=== PATIENT | female | born 1960 | race Caucasian/White ===

== ENCOUNTER 2021-03-04 06:16 | Inpatient (IN) ==
[2021-03-04 07:08] LABS: Basophils % 0.2 % (0.0-0.8); Eosinophils # 0.1 10*3/uL (0.0-0.87); Eosinophils % 0.6 % (0.00-10.9); Hematocrit 35.1 VOL% (35.7-47.0); Hemoglobin 11.9 GM/DL (12.0-16.0); Immature Granulocytes % 0.9 %; Immature Granulocytes Absolute 0.17 #; Lymphocytes # 1.3 10*3/uL (1.4-4.0); Lymphocytes % 6.8 % (21.3-54.2); Mean Corpuscular HGB Conc 33.9 GM/DL (32-36); Mean Corpuscular Volume 88.4 FL (87-102); Mean Platelet Volume 10.7 FL (9.6-12.0); Monocytes % 7.5 % (1.7-12.7); Platelet Count 449 T/CUMM (130-400); Red Blood Count 3.97 MC/CUMM (3.8-5.5); Red Cell Distribution Width 14.6 % (9.3-17.3); White Blood Count 18.7 T/CUMM (4-12)
[2021-03-04 07:27] LABS: Albumin 3.2 G/DL (3.4-5.0); Bilirubin,Total 0.6 MG/DL (0.20-1.00); Calcium 9.2 MG/DL (8.5-10.1); Potassium 3.1 MMOL/L (3.5-5.1); Total Protein 7.7 G/DL (6.4-8.2)
[2021-03-04] MEDS ORDERED: FUROSEMIDE 40 MG/4 ML VIAL IV STA (07:52)
[2021-03-04] MEDS ORDERED: cefTRIAXone 1,000 MG in SODIUM CHLORIDE 0.9% 100 ML IV STA (08:26)
[2021-03-04 09:45] LABS: Ferritin 270.6 ng/mL (8-252)
[2021-03-04] MEDS ORDERED: GLUCAGON 1 MG VIAL IM PRN (12:46)
[2021-03-04] MEDS ORDERED: guaiFENesin/DM ER 600-30 MG TABLET PO PRN (12:46)
[2021-03-04] MEDS ORDERED: POTASSIUM CHLORIDE 20 MEQ TABLET PO STA (12:46)
[2021-03-04] MEDS ORDERED: LACTATED RINGERS 1,000 ML IV SCH (13:00)
[2021-03-04] MEDS ORDERED: DEXTROSE 50% 25 GM/50 ML SYRINGE IV PRN (13:04)
[2021-03-04] MEDS: ALBUTEROL/IPRATROPIUM 3 ML NEB RESP TX SCH ×2 (14:47→20:49)
[2021-03-04 15:14] LABS: Thyroid Stimulating Hormone 8.29 uIU/ml (0.358-3.74)
[2021-03-04] MEDS: MEROPENEM 500 MG in SODIUM CHLORIDE 0.9% 100 ML IV SCH ×2 (15:35→22:37)
[2021-03-04] MEDS ORDERED: POTASSIUM CHLORIDE RIDER 10 MEQ/100 ML PREMIX IV PRN (17:07)
[2021-03-04] MEDS: VANCOMYCIN INJ 750 MG in SODIUM CHLORIDE 0.9% 250 ML IV SCH (17:40)
[2021-03-04] MEDS: ONDANSETRON 4 MG/2 ML VIAL IV PRN ×2 (18:13→23:49)
[2021-03-04] MEDS: METOPROLOL TARTRATE 25 MG TABLET PO SCH (20:37)
[2021-03-04] MEDS: ATORVASTATIN 10 MG TABLET PO SCH (20:37)
[2021-03-05] MEDS: ALBUTEROL/IPRATROPIUM 3 ML NEB RESP TX SCH (00:10)
[2021-03-05] MEDS: IPRATROPIUM 500 MCG/2.5 ML NEB RESP TX SCH ×4 (01:07→19:56)
[2021-03-05] MEDS: LEVALBUTEROL 1.25 MG/3 ML NEB RESP TX SCH ×4 (01:09→19:56)
[2021-03-05] MEDS ORDERED: FUROSEMIDE 40 MG/4 ML VIAL IV ONE (04:43)
[2021-03-05] MEDS: MEROPENEM 500 MG in SODIUM CHLORIDE 0.9% 100 ML IV SCH ×3 (05:21→21:12)
[2021-03-05 06:16] LABS: Basophils % 0.2 % (0.0-0.8); Eosinophils # 0.2 10*3/uL (0.0-0.87); Hematocrit 38.4 VOL% (35.7-47.0); Hemoglobin 12.6 GM/DL (12.0-16.0); Immature Granulocytes % 0.8 %; Immature Granulocytes Absolute 0.14 #; Lymphocytes # 1.3 10*3/uL (1.4-4.0); Lymphocytes % 7.9 % (21.3-54.2); Mean Corpuscular HGB Conc 32.8 GM/DL (32-36); Mean Corpuscular Volume 90.1 FL (87-102); Mean Platelet Volume 10.8 FL (9.6-12.0); Monocytes % 7.3 % (1.7-12.7); Neutrophils % 82.8 % (38.7-73.9); Platelet Count 356 T/CUMM (130-400); Red Blood Count 4.26 MC/CUMM (3.8-5.5); White Blood Count 16.7 T/CUMM (4-12)
[2021-03-05 06:41] LABS: Eosinophils 1 % (0-10); Lymphocytes 6 % (20-55); Platelet Estimate Adequate; Segmented Neutrophils 85 % (50-85); Total Cells Counted 100
[2021-03-05 06:42] LABS: Ovalocytes Slight
[2021-03-05 06:51] LABS: Albumin 3.1 G/DL (3.4-5.0); Bilirubin,Total 0.4 MG/DL (0.20-1.00); Calcium 8.6 MG/DL (8.5-10.1); Osmolality,Calculated 276.1 MOS/KG (273-304); Potassium 3.5 MMOL/L (3.5-5.1); Total Protein 7.6 G/DL (6.4-8.2)
[2021-03-05] MEDS: PANTOPRAZOLE 40 MG TABLET PO SCH (08:04)
[2021-03-05] MEDS: METOPROLOL TARTRATE 25 MG TABLET PO SCH ×2 (08:04→21:12)
[2021-03-05] MEDS ORDERED: IBUPROFEN 600 MG TABLET PO PRN (08:09)
[2021-03-05] MEDS ORDERED: FUROSEMIDE 20 MG TABLET PO PRN (08:09)
[2021-03-05] MEDS ORDERED: TEMAZEPAM 15 MG CAPSULE PO PRN (08:09)
[2021-03-05] MEDS ORDERED: traMADol 50 MG TABLET PO PRN (08:09)
[2021-03-05 08:26] LABS: Free T4 (Free Thyroxine) 1.17 NG/DL (0.76-1.46)
[2021-03-05 08:46] LABS: INR 1.1; PT Patient Result 12.5 SECS (10.5-12.0)
[2021-03-05] MEDS: DEXAMETHASONE 4 MG TABLET PO SCH (11:11)
[2021-03-05] MEDS: ESTRADIOL 1 MG TABLET PO SCH (11:11)
[2021-03-05 13:26] LABS: Immunoglobulin A < 31 MG/DL (70-400); Immunoglobulin G 196 MG/DL (700-1600); Immunoglobulin M < 21 MG/DL (40-230); Total Protein 7.2 G/DL (6.4-8.2)
[2021-03-05] MEDS: ENOXAPARIN 40 MG/0.4 ML SYRINGE SUBCUT SCH (14:06)
[2021-03-05] MEDS: VANCOMYCIN INJ 750 MG in SODIUM CHLORIDE 0.9% 250 ML IV SCH (16:35)
[2021-03-05] MEDS: ATORVASTATIN 10 MG TABLET PO SCH (21:12)
[2021-03-05] MEDS: TEMAZEPAM 15 MG CAPSULE PO PRN (21:51)
[2021-03-06] MEDS: MEROPENEM 500 MG in SODIUM CHLORIDE 0.9% 100 ML IV SCH ×3 (05:14→21:04)
[2021-03-06 05:25] LABS: Basophils % 0.2 % (0.0-0.8); Eosinophils # 0.1 10*3/uL (0.0-0.87); Eosinophils % 0.5 % (0.00-10.9); Hematocrit 34.7 VOL% (35.7-47.0); Hemoglobin 11.2 GM/DL (12.0-16.0); Immature Granulocytes % 0.8 %; Immature Granulocytes Absolute 0.13 #; Lymphocytes # 1.6 10*3/uL (1.4-4.0); Lymphocytes % 9.5 % (21.3-54.2); Mean Corpuscular HGB Conc 32.3 GM/DL (32-36); Mean Corpuscular Volume 91.3 FL (87-102); Mean Platelet Volume 10.8 FL (9.6-12.0); Monocytes % 6.3 % (1.7-12.7); Neutrophils % 82.7 % (38.7-73.9); Platelet Count 412 T/CUMM (130-400); Red Cell Distribution Width 14.8 % (9.3-17.3); White Blood Count 16.9 T/CUMM (4-12)
[2021-03-06 05:46] LABS: Platelet Estimate Normal
[2021-03-06 05:47] LABS: Anisocytosis 1+; Burr Cells Few; Ovalocytes Few
[2021-03-06 05:53] LABS: Albumin 2.9 G/DL (3.4-5.0); Bilirubin,Total 0.4 MG/DL (0.20-1.00); Osmolality,Calculated 274.1 MOS/KG (273-304); Potassium 3.8 MMOL/L (3.5-5.1); Total Protein 7.1 G/DL (6.4-8.2)
[2021-03-06] MEDS: CLORAZEPATE 3.75 MG TABLET PO PRN ×2 (06:01→15:29)
[2021-03-06 06:44] LABS: Total Protein (Chem) 7.2 G/DL (6.4-8.3)
[2021-03-06 07:52] LABS: Albumin (SPE) 4.2 G/DL (3.2-5.3); Albumin (SPE) Rel % 58.9 %; Alpha 1 (SPE) 0.2 G/DL (0.1-0.4); Alpha 1 (SPE) Rel % 3.4 %; Alpha 2 (SPE) 1.3 G/DL (0.4-1.0); Alpha 2 (SPE) Rel % 18.6 %; Beta (SPE) 1.1 G/DL (0.5-1.1); Gamma (SPE) 0.3 G/DL (0.7-1.7); Gamma (SPE) Rel % 4.1 %
[2021-03-06] MEDS: PANTOPRAZOLE 40 MG TABLET PO SCH (08:40)
[2021-03-06] MEDS ORDERED: LEVALBUTEROL 1.25 MG/3 ML NEB RESP TX PRN (08:41)
[2021-03-06] MEDS: METOPROLOL TARTRATE 25 MG TABLET PO SCH ×2 (08:41→21:04)
[2021-03-06] MEDS: ESTRADIOL 1 MG TABLET PO SCH (08:41)
[2021-03-06] MEDS: DEXAMETHASONE 4 MG TABLET PO SCH (08:41)
[2021-03-06] MEDS: IPRATROPIUM 500 MCG/2.5 ML NEB RESP TX SCH (09:21)
[2021-03-06] MEDS: ENOXAPARIN 40 MG/0.4 ML SYRINGE SUBCUT SCH (11:08)
[2021-03-06] MEDS ORDERED: POTASSIUM CHLORIDE 20 MEQ TABLET PO SCH (11:30)
[2021-03-06] MEDS ORDERED: FUROSEMIDE 20 MG/2 ML VIAL IV ONE (12:00)
[2021-03-06] MEDS: MONTELUKAST 10 MG TABLET PO SCH (13:04)
[2021-03-06] MEDS: LEVALBUTEROL 1.25 MG/3 ML NEB RESP TX SCH (13:14)
[2021-03-06] MEDS: POTASSIUM BICARB EFFERVESCENT 20 MEQ TAB.EFF PO SCH (13:28)
[2021-03-06 14:21] LABS: Lambda Free Light Chain 0.84 mg/dL
[2021-03-06] MEDS: FUROSEMIDE 20 MG/2 ML VIAL IV SCH (16:22)
[2021-03-06] MEDS: VANCOMYCIN INJ 750 MG in SODIUM CHLORIDE 0.9% 250 ML IV SCH (16:22)
[2021-03-06] MEDS ORDERED: AZITHROMYCIN INJ 500 MG in SODIUM CHLORIDE 0.9% 250 ML IV SCH (18:00)
[2021-03-06] MEDS ORDERED: ALUMINUM/MAGNES/SIMETH MAX STR 30 ML UDCUP PO PRN (18:42)
[2021-03-06] MEDS: ONDANSETRON 4 MG/2 ML VIAL IV PRN (19:17)
[2021-03-06] MEDS: ATORVASTATIN 10 MG TABLET PO SCH (21:04)
[2021-03-06] MEDS: TEMAZEPAM 15 MG CAPSULE PO PRN (21:04)
[2021-03-06] MEDS: BENZONATATE 100 MG CAPSULE PO PRN (22:45)
[2021-03-07 05:50] LABS: Basophils % 0.2 % (0.0-0.8); Eosinophils # 0.2 10*3/uL (0.0-0.87); Eosinophils % 1.3 % (0.00-10.9); Hematocrit 28.2 VOL% (35.7-47.0); Hemoglobin 9.5 GM/DL (12.0-16.0); Immature Granulocytes % 0.8 %; Lymphocytes # 1.5 10*3/uL (1.4-4.0); Lymphocytes % 11.6 % (21.3-54.2); Mean Corpuscular HGB Conc 33.7 GM/DL (32-36); Mean Platelet Volume 10.4 FL (9.6-12.0); Monocytes % 8.6 % (1.7-12.7); Neutrophils % 77.5 % (38.7-73.9); Platelet Count 363 T/CUMM (130-400); Red Blood Count 3.17 MC/CUMM (3.8-5.5); Red Cell Distribution Width 14.7 % (9.3-17.3); White Blood Count 13.1 T/CUMM (4-12)
[2021-03-07] MEDS: MEROPENEM 500 MG in SODIUM CHLORIDE 0.9% 100 ML IV SCH ×3 (06:07→21:39)
[2021-03-07] MEDS: FUROSEMIDE 20 MG/2 ML VIAL IV SCH (06:07)
[2021-03-07] MEDS: CLORAZEPATE 3.75 MG TABLET PO PRN ×3 (07:16→21:37)
[2021-03-07] MEDS: BENZONATATE 100 MG CAPSULE PO PRN ×2 (07:17→21:37)
[2021-03-07] MEDS ORDERED: AZITHROMYCIN 250 MG TABLET PO SCH (09:00)
[2021-03-07] MEDS: POTASSIUM BICARB EFFERVESCENT 20 MEQ TAB.EFF PO SCH (10:09)
[2021-03-07] MEDS: MONTELUKAST 10 MG TABLET PO SCH (10:09)
[2021-03-07] MEDS: ESTRADIOL 1 MG TABLET PO SCH (10:10)
[2021-03-07] MEDS: PANTOPRAZOLE 40 MG TABLET PO SCH ×2 (10:10→21:38)
[2021-03-07] MEDS: DEXAMETHASONE 4 MG TABLET PO SCH (10:10)
[2021-03-07] MEDS: METOPROLOL TARTRATE 25 MG TABLET PO SCH ×2 (10:10→21:38)
[2021-03-07] MEDS ORDERED: metOLazone 5 MG TABLET PO SCH (11:00)
[2021-03-07] MEDS: POTASSIUM CHLORIDE 20 MEQ TABLET PO SCH ×2 (11:07→21:38)
[2021-03-07] MEDS: DORNASE ALFA 2.5 MG/2.5 ML VIAL RESP TX SCH ×2 (11:20→20:23)
[2021-03-07 12:10] LABS: Calcium 7.1 MG/DL (8.5-10.1); Osmolality,Calculated 277.1 MOS/KG (273-304); Potassium 3.9 MMOL/L (3.5-5.1)
[2021-03-07] MEDS ORDERED: FUROSEMIDE 40 MG/4 ML VIAL IV ONE ×2 (12:30→20:30)
[2021-03-07] MEDS: VANCOMYCIN INJ 750 MG in SODIUM CHLORIDE 0.9% 250 ML IV SCH (19:28)
[2021-03-07] MEDS: ATORVASTATIN 10 MG TABLET PO SCH (21:37)
[2021-03-07] MEDS: TEMAZEPAM 15 MG CAPSULE PO PRN (21:38)
[2021-03-07] MEDS: ENOXAPARIN 40 MG/0.4 ML SYRINGE SUBCUT SCH (21:39)
[2021-03-08] MEDS ORDERED: VANCOMYCIN INJ 750 MG in SODIUM CHLORIDE 0.9% 250 ML IV SCH (05:00)
[2021-03-08] MEDS: MEROPENEM 500 MG in SODIUM CHLORIDE 0.9% 100 ML IV SCH ×3 (05:37→20:09)
[2021-03-08 06:05] LABS: Basophils % 0.1 % (0.0-0.8); Eosinophils # 0.1 10*3/uL (0.0-0.87); Eosinophils % 0.7 % (0.00-10.9); Hematocrit 27.7 VOL% (35.7-47.0); Hemoglobin 9.4 GM/DL (12.0-16.0); Immature Granulocytes % 0.6 %; Immature Granulocytes Absolute 0.06 #; Lymphocytes # 1.2 10*3/uL (1.4-4.0); Mean Corpuscular HGB Conc 33.9 GM/DL (32-36); Mean Corpuscular Volume 87.9 FL (87-102); Mean Platelet Volume 10.7 FL (9.6-12.0); Monocytes % 9.1 % (1.7-12.7); Neutrophils % 77.5 % (38.7-73.9); Platelet Count 323 T/CUMM (130-400); Red Blood Count 3.15 MC/CUMM (3.8-5.5); Red Cell Distribution Width 14.8 % (9.3-17.3); White Blood Count 9.9 T/CUMM (4-12)
[2021-03-08] MEDS ORDERED: HEPARIN/NACL 0.9% 2 UNITS/ML 2,000 UNIT/1,000 ML BAG IV ONE (07:17)
[2021-03-08] MEDS ORDERED: LIDOCAINE 1% 20 ML VIAL ONE (07:17)
[2021-03-08] MEDS ORDERED: FUROSEMIDE 40 MG/4 ML VIAL IV SCH (08:00)
[2021-03-08 08:24] LABS: Calcium 7.1 MG/DL (8.5-10.1); Osmolality,Calculated 275.1 MOS/KG (273-304); Potassium 3.6 MMOL/L (3.5-5.1)
[2021-03-08] MEDS ORDERED: diphenhydrAMINE CAP 50 MG CAPSULE PO ONE (08:59)
[2021-03-08] MEDS ORDERED: DIAZEPAM 5 MG TABLET PO ONE (08:59)
[2021-03-08] MEDS ORDERED: POTASSIUM BICARB EFFERVESCENT 20 MEQ TAB.EFF PO SCH (09:00)
[2021-03-08] MEDS: DORNASE ALFA 2.5 MG/2.5 ML VIAL RESP TX SCH ×2 (10:11→21:27)
[2021-03-08] MEDS: DEXAMETHASONE 4 MG TABLET PO SCH (11:10)
[2021-03-08] MEDS: POTASSIUM CHLORIDE 20 MEQ TABLET PO SCH ×2 (11:10→20:09)
[2021-03-08] MEDS: PANTOPRAZOLE 40 MG TABLET PO SCH ×2 (11:11→20:09)
[2021-03-08] MEDS: METOPROLOL TARTRATE 25 MG TABLET PO SCH ×2 (11:11→20:09)
[2021-03-08] MEDS: MONTELUKAST 10 MG TABLET PO SCH (11:11)
[2021-03-08] MEDS: ESTRADIOL 1 MG TABLET PO SCH (11:11)
[2021-03-08 11:12] LABS: Bilirubin,Urine Negative (Negative); Blood, Urine Small mg/dL (Negative); Glucose,Urine (UA) Negative (Negative); Ketones,Urine Negative (Negative); Mucus,Urine Occasional /LPF (Occasional); Nitrite,Urine Negative (Negative); Protein,Urine Negative; RBC,Urine 2 /HPF (0-4); Squamous Epithelial Cell,Urine Few /HPF (0-10); Urine Appearance CLEAR (Clear); Urine Color Straw (Yellow); Urine Specific Gravity 1.017 (1.001-1.035); Urine Urobilinogen < 2.0 EU/DL (<2.0)
[2021-03-08] MEDS: CLORAZEPATE 3.75 MG TABLET PO PRN ×2 (11:17→20:09)
[2021-03-08] MEDS: FUROSEMIDE INJ 100 MG in SODIUM CHLORIDE 0.9% 90 ML IV SCH ×2 (11:20→20:30)
[2021-03-08] MEDS: BENZONATATE 100 MG CAPSULE PO PRN (14:26)
[2021-03-08] MEDS ORDERED: ALPRAZolam 0.5 MG TABLET PO ONE (16:07)
[2021-03-08] MEDS: ATORVASTATIN 10 MG TABLET PO SCH (20:09)
[2021-03-08] MEDS: TEMAZEPAM 15 MG CAPSULE PO PRN (20:09)
[2021-03-08] MEDS: MAGNESIUM OXIDE 400 MG TABLET PO SCH (20:09)
[2021-03-08] MEDS: ENOXAPARIN 40 MG/0.4 ML SYRINGE SUBCUT SCH (20:22)
[2021-03-09 03:49] LABS: Basophils % 0.1 % (0.0-0.8); Eosinophils % 0.3 % (0.00-10.9); Hematocrit 29.5 VOL% (35.7-47.0); Hemoglobin 9.8 GM/DL (12.0-16.0); Immature Granulocytes % 0.5 %; Immature Granulocytes Absolute 0.05 #; Lymphocytes % 10.4 % (21.3-54.2); Mean Corpuscular HGB Conc 33.2 GM/DL (32-36); Mean Corpuscular Volume 88.6 FL (87-102); Mean Platelet Volume 9.9 FL (9.6-12.0); Monocytes % 7.5 % (1.7-12.7); Neutrophils % 81.2 % (38.7-73.9); Platelet Count 331 T/CUMM (130-400); Red Blood Count 3.33 MC/CUMM (3.8-5.5); Red Cell Distribution Width 14.6 % (9.3-17.3); White Blood Count 9.3 T/CUMM (4-12)
[2021-03-09 04:03] LABS: Calcium 7.7 MG/DL (8.5-10.1); Osmolality,Calculated 281.7 MOS/KG (273-304); Potassium 4.4 MMOL/L (3.5-5.1)
[2021-03-09] MEDS: MEROPENEM 500 MG in SODIUM CHLORIDE 0.9% 100 ML IV SCH ×3 (06:00→20:51)
[2021-03-09] MEDS: FUROSEMIDE INJ 100 MG in SODIUM CHLORIDE 0.9% 90 ML IV SCH (06:29)
[2021-03-09] MEDS: DORNASE ALFA 2.5 MG/2.5 ML VIAL RESP TX SCH ×2 (07:20→21:09)
[2021-03-09] MEDS: ESTRADIOL 1 MG TABLET PO SCH (08:01)
[2021-03-09] MEDS: MAGNESIUM OXIDE 400 MG TABLET PO SCH ×2 (08:01→20:51)
[2021-03-09] MEDS: DEXAMETHASONE 4 MG TABLET PO SCH (08:02)
[2021-03-09] MEDS: MONTELUKAST 10 MG TABLET PO SCH (08:02)
[2021-03-09] MEDS: PANTOPRAZOLE 40 MG TABLET PO SCH ×2 (08:02→20:51)
[2021-03-09] MEDS: POTASSIUM CHLORIDE 20 MEQ TABLET PO SCH ×2 (08:02→20:51)
[2021-03-09] MEDS: CLORAZEPATE 3.75 MG TABLET PO PRN ×2 (08:02→20:51)
[2021-03-09] MEDS: METOPROLOL TARTRATE 25 MG TABLET PO SCH ×2 (08:02→20:51)
[2021-03-09] MEDS ORDERED: GRANISETRON 1 MG/1 ML VIAL IV ONE (11:00)
[2021-03-09] MEDS ORDERED: DEXAMETHASONE INJ 10 MG in SODIUM CHLORIDE 0.9% 50 ML IV ONE (11:00)
[2021-03-09] MEDS ORDERED: CYCLOPHOSPHAMIDE INJ 500 MG in SODIUM CHLORIDE 0.9% 250 ML IV ONE (12:00)
[2021-03-09] MEDS ORDERED: FUROSEMIDE INJ 100 MG in SODIUM CHLORIDE 0.9% 90 ML IV SCH ×2 (17:18→18:00)
[2021-03-09] MEDS: TEMAZEPAM 15 MG CAPSULE PO PRN (20:50)
[2021-03-09] MEDS: ATORVASTATIN 10 MG TABLET PO SCH (20:51)
[2021-03-09] MEDS: ENOXAPARIN 40 MG/0.4 ML SYRINGE SUBCUT SCH (20:51)
[2021-03-10] MEDS: FUROSEMIDE INJ 100 MG in SODIUM CHLORIDE 0.9% 90 ML IV SCH ×2 (02:01→06:15)
[2021-03-10 04:11] LABS: Basophils % 0.1 % (0.0-0.8); Hematocrit 29.2 VOL% (35.7-47.0); Hemoglobin 9.9 GM/DL (12.0-16.0); Immature Granulocytes % 0.5 %; Immature Granulocytes Absolute 0.05 #; Lymphocytes # 0.6 10*3/uL (1.4-4.0); Lymphocytes % 6.4 % (21.3-54.2); Mean Corpuscular HGB Conc 33.9 GM/DL (32-36); Mean Corpuscular Volume 87.2 FL (87-102); Mean Platelet Volume 10.3 FL (9.6-12.0); Monocytes % 8.6 % (1.7-12.7); Neutrophils % 84.4 % (38.7-73.9); Platelet Count 327 T/CUMM (130-400); Red Blood Count 3.35 MC/CUMM (3.8-5.5); Red Cell Distribution Width 14.4 % (9.3-17.3); White Blood Count 9.1 T/CUMM (4-12)
[2021-03-10] MEDS: MEROPENEM 500 MG in SODIUM CHLORIDE 0.9% 100 ML IV SCH ×3 (05:14→20:09)
[2021-03-10] MEDS: DORNASE ALFA 2.5 MG/2.5 ML VIAL RESP TX SCH ×2 (07:36→20:48)
[2021-03-10 07:46] LABS: Calcium 7.5 MG/DL (8.5-10.1); Potassium 4.9 MMOL/L (3.5-5.1)
[2021-03-10] MEDS: ESTRADIOL 1 MG TABLET PO SCH (09:23)
[2021-03-10] MEDS: POTASSIUM CHLORIDE 20 MEQ TABLET PO SCH ×2 (09:24→20:11)
[2021-03-10] MEDS: MAGNESIUM OXIDE 400 MG TABLET PO SCH ×2 (09:24→20:10)
[2021-03-10] MEDS: PANTOPRAZOLE 40 MG TABLET PO SCH ×2 (09:24→20:11)
[2021-03-10] MEDS: MONTELUKAST 10 MG TABLET PO SCH (09:24)
[2021-03-10] MEDS: METOPROLOL TARTRATE 25 MG TABLET PO SCH ×2 (09:27→20:11)
[2021-03-10] MEDS: CLORAZEPATE 3.75 MG TABLET PO PRN ×2 (09:27→20:10)
[2021-03-10] MEDS: FUROSEMIDE 40 MG/4 ML VIAL IV SCH (15:56)
[2021-03-10] MEDS: ENOXAPARIN 40 MG/0.4 ML SYRINGE SUBCUT SCH (20:10)
[2021-03-10] MEDS: ATORVASTATIN 10 MG TABLET PO SCH (20:10)
[2021-03-10] MEDS: TEMAZEPAM 15 MG CAPSULE PO PRN (23:58)
[2021-03-11] MEDS: MEROPENEM 500 MG in SODIUM CHLORIDE 0.9% 100 ML IV SCH ×3 (04:28→21:06)
[2021-03-11 07:56] LABS: Basophils # 0.1 10*3/uL (0.0-0.2); Basophils % 0.5 % (0.0-0.8); Eosinophils # 0.2 10*3/uL (0.0-0.87); Eosinophils % 1.8 % (0.00-10.9); Hemoglobin 9.8 GM/DL (12.0-16.0); Immature Granulocytes % 0.5 %; Immature Granulocytes Absolute 0.05 #; Lymphocytes # 0.9 10*3/uL (1.4-4.0); Mean Corpuscular HGB Conc 32.7 GM/DL (32-36); Mean Corpuscular Volume 89.6 FL (87-102); Mean Platelet Volume 9.8 FL (9.6-12.0); Monocytes % 10.7 % (1.7-12.7); Neutrophils % 78.5 % (38.7-73.9); Platelet Count 307 T/CUMM (130-400); Red Blood Count 3.35 MC/CUMM (3.8-5.5); Red Cell Distribution Width 14.4 % (9.3-17.3); White Blood Count 10.7 T/CUMM (4-12)
[2021-03-11] MEDS: DORNASE ALFA 2.5 MG/2.5 ML VIAL RESP TX SCH (08:05)
[2021-03-11 08:25] LABS: Calcium 7.8 MG/DL (8.5-10.1); Osmolality,Calculated 279.8 MOS/KG (273-304); Potassium 4.6 MMOL/L (3.5-5.1)
[2021-03-11] MEDS: FUROSEMIDE 40 MG/4 ML VIAL IV SCH ×2 (09:03→16:01)
[2021-03-11] MEDS: ESTRADIOL 1 MG TABLET PO SCH (09:04)
[2021-03-11] MEDS: PANTOPRAZOLE 40 MG TABLET PO SCH ×2 (09:04→21:08)
[2021-03-11] MEDS: POTASSIUM CHLORIDE 20 MEQ TABLET PO SCH ×2 (09:04→21:08)
[2021-03-11] MEDS: METOPROLOL TARTRATE 25 MG TABLET PO SCH ×2 (09:04→21:07)
[2021-03-11] MEDS: MONTELUKAST 10 MG TABLET PO SCH (09:04)
[2021-03-11] MEDS: MAGNESIUM OXIDE 400 MG TABLET PO SCH ×2 (09:04→21:07)
[2021-03-11] MEDS: CLORAZEPATE 3.75 MG TABLET PO PRN ×2 (09:06→16:48)
[2021-03-11 10:49] LABS: Eosinophils 1 % (0-10); Lymphocytes 8 % (20-55); Platelet Estimate Normal; Segmented Neutrophils 82 % (50-85); Total Cells Counted 100
[2021-03-11] MEDS: ENOXAPARIN 40 MG/0.4 ML SYRINGE SUBCUT SCH (21:06)
[2021-03-11] MEDS: TEMAZEPAM 15 MG CAPSULE PO PRN (21:07)
[2021-03-11] MEDS: ATORVASTATIN 10 MG TABLET PO SCH (21:07)
[2021-03-12 06:28] LABS: Basophils # 0.1 10*3/uL (0.0-0.2); Basophils % 0.5 % (0.0-0.8); Eosinophils # 0.2 10*3/uL (0.0-0.87); Eosinophils % 1.6 % (0.00-10.9); Hematocrit 31.2 VOL% (35.7-47.0); Hemoglobin 10.1 GM/DL (12.0-16.0); Immature Granulocytes % 0.5 %; Immature Granulocytes Absolute 0.05 #; Lymphocytes # 0.7 10*3/uL (1.4-4.0); Lymphocytes % 7.5 % (21.3-54.2); Mean Corpuscular HGB Conc 32.4 GM/DL (32-36); Mean Corpuscular Volume 89.1 FL (87-102); Mean Platelet Volume 10.4 FL (9.6-12.0); Monocytes % 7.4 % (1.7-12.7); Neutrophils % 82.5 % (38.7-73.9); Platelet Count 297 T/CUMM (130-400); Red Cell Distribution Width 14.4 % (9.3-17.3); White Blood Count 9.4 T/CUMM (4-12)
[2021-03-12 06:50] LABS: Calcium 7.7 MG/DL (8.5-10.1); Osmolality,Calculated 281.7 MOS/KG (273-304)
[2021-03-12] MEDS: ESTRADIOL 1 MG TABLET PO SCH (09:12)
[2021-03-12] MEDS: MAGNESIUM OXIDE 400 MG TABLET PO SCH ×2 (09:12→21:00)
[2021-03-12] MEDS: METOPROLOL TARTRATE 25 MG TABLET PO SCH ×2 (09:13→21:00)
[2021-03-12] MEDS: POTASSIUM CHLORIDE 20 MEQ TABLET PO SCH (09:13)
[2021-03-12] MEDS: MONTELUKAST 10 MG TABLET PO SCH (09:13)
[2021-03-12] MEDS: PANTOPRAZOLE 40 MG TABLET PO SCH ×2 (09:13→21:00)
[2021-03-12] MEDS: FUROSEMIDE 40 MG/4 ML VIAL IV SCH (09:14)
[2021-03-12] MEDS: CLORAZEPATE 3.75 MG TABLET PO PRN ×2 (09:17→23:54)
[2021-03-12] MEDS ORDERED: FUROSEMIDE 40 MG TABLET PO SCH (16:00)
[2021-03-12] MEDS: ENOXAPARIN 40 MG/0.4 ML SYRINGE SUBCUT SCH (20:59)
[2021-03-12] MEDS: ATORVASTATIN 10 MG TABLET PO SCH (21:01)
[2021-03-12] MEDS: ACETAMINOPHEN 325 MG TABLET PO PRN (21:45)
[2021-03-13] MEDS: TEMAZEPAM 15 MG CAPSULE PO PRN (00:42)
[2021-03-13] MEDS ORDERED: LEVOTHYROXINE 50 MCG TABLET PO SCH (06:30)
[2021-03-13 07:18] LABS: Basophils % 0.6 % (0.0-0.8); Eosinophils # 0.2 10*3/uL (0.0-0.87); Eosinophils % 2.9 % (0.00-10.9); Hematocrit 30.9 VOL% (35.7-47.0); Hemoglobin 10.1 GM/DL (12.0-16.0); Immature Granulocytes % 0.3 %; Immature Granulocytes Absolute 0.02 #; Lymphocytes # 0.7 10*3/uL (1.4-4.0); Lymphocytes % 10.1 % (21.3-54.2); Mean Corpuscular HGB Conc 32.7 GM/DL (32-36); Mean Corpuscular Volume 89.6 FL (87-102); Monocytes % 9.3 % (1.7-12.7); Neutrophils % 76.8 % (38.7-73.9); Platelet Count 258 T/CUMM (130-400); Red Blood Count 3.45 MC/CUMM (3.8-5.5); Red Cell Distribution Width 14.4 % (9.3-17.3); White Blood Count 6.5 T/CUMM (4-12)
[2021-03-13 07:47] LABS: Calcium 7.5 MG/DL (8.5-10.1); Potassium 4.8 MMOL/L (3.5-5.1)
[2021-03-13] MEDS: MAGNESIUM OXIDE 400 MG TABLET PO SCH (08:30)
[2021-03-13] MEDS: ESTRADIOL 1 MG TABLET PO SCH (08:30)
[2021-03-13] MEDS: METOPROLOL TARTRATE 25 MG TABLET PO SCH (08:31)
[2021-03-13] MEDS: MONTELUKAST 10 MG TABLET PO SCH (08:32)
[2021-03-13] MEDS: PANTOPRAZOLE 40 MG TABLET PO SCH (08:32)
[2021-03-13] MEDS: ACETAMINOPHEN 325 MG TABLET PO PRN (08:33)
[2021-03-13] MEDS ORDERED: FUROSEMIDE 40 MG TABLET PO SCH (09:00)
[2021-03-13] MEDS ORDERED: POTASSIUM CHLORIDE 20 MEQ TABLET PO SCH (09:00)
[2021-03-13 12:38] VITALS: BP 103/61
[2021-03-13] MEDS: CLORAZEPATE 3.75 MG TABLET PO PRN (13:25)
== END 2021-03-13 13:41 | disposition hospice, home (50) | DRG 286 ==
LOC: N.ED 06:16 → N.EDINP 12:46 → SUATTDRO 12:46 → N.5E 14:01 → N.ICU 03-08 10:32 → N.TELES 03-13 00:57
PROVIDERS: ADMIT Internal Medicine; ATTEND Internal Medicine

== ENCOUNTER 2021-05-03 20:10 | Inpatient (IN) ==
[2021-05-03 20:53] LABS: Basophils # 0.1 10*3/uL (0.0-0.2); Eosinophils # 0.6 10*3/uL (0.0-0.87); Eosinophils % 6.3 % (0.00-10.9); Hematocrit 32.9 VOL% (35.7-47.0); Hemoglobin 10.9 GM/DL (12.0-16.0); Immature Granulocytes % 0.4 %; Immature Granulocytes Absolute 0.04 #; Lymphocytes # 0.9 10*3/uL (1.4-4.0); Lymphocytes % 9.3 % (21.3-54.2); Mean Corpuscular HGB Conc 33.1 GM/DL (32-36); Mean Corpuscular Volume 89.2 FL (87-102); Mean Platelet Volume 10.5 FL (9.6-12.0); Monocytes % 14.9 % (1.7-12.7); Neutrophils % 68.1 % (38.7-73.9); Platelet Count 337 T/CUMM (130-400); Red Blood Count 3.69 MC/CUMM (3.8-5.5); Red Cell Distribution Width 14.8 % (9.3-17.3); White Blood Count 9.8 T/CUMM (4-12)
[2021-05-03] MEDS ORDERED: FUROSEMIDE 40 MG/4 ML VIAL IV STA (20:58)
[2021-05-03 21:48] LABS: Albumin 2.7 G/DL (3.4-5.0); Bilirubin,Total 2.4 MG/DL (0.20-1.00); Calcium 10.2 MG/DL (8.5-10.1); Potassium 3.4 MMOL/L (3.5-5.1); Total Protein 5.9 G/DL (6.4-8.2)
[2021-05-03 21:57] LABS: Thyroid Stimulating Hormone 19.9 uIU/ml (0.358-3.74)
[2021-05-03 22:47] LABS: Platelet Estimate Increased
[2021-05-03 22:49] LABS: Helmet Cells 1+; Schistocytes 1+
[2021-05-04] MEDS ORDERED: oxyCODONE ER 10 MG TABLET PO STA ×2 (01:07→01:18)
[2021-05-04] MEDS ORDERED: oxyCODONE IR 5 MG TABLET PO ONE (01:12)
[2021-05-04] MEDS ORDERED: GLUCAGON 1 MG VIAL IM PRN (02:03)
[2021-05-04] MEDS ORDERED: ONDANSETRON 4 MG/2 ML VIAL IV PRN (02:15)
[2021-05-04] MEDS ORDERED: DEXTROSE 10% 250 ML BAG IV PRN (02:47)
[2021-05-04 03:50] LABS: Basophils # 0.1 10*3/uL (0.0-0.2); Basophils % 1.1 % (0.0-0.8); Eosinophils # 0.6 10*3/uL (0.0-0.87); Eosinophils % 6.3 % (0.00-10.9); Hematocrit 31.1 VOL% (35.7-47.0); Hemoglobin 10.3 GM/DL (12.0-16.0); Immature Granulocytes % 0.5 %; Immature Granulocytes Absolute 0.05 #; Lymphocytes % 10.4 % (21.3-54.2); Mean Corpuscular HGB Conc 33.1 GM/DL (32-36); Mean Corpuscular Volume 89.6 FL (87-102); Mean Platelet Volume 10.5 FL (9.6-12.0); Monocytes % 14.1 % (1.7-12.7); Neutrophils % 67.6 % (38.7-73.9); Platelet Count 314 T/CUMM (130-400); Red Blood Count 3.47 MC/CUMM (3.8-5.5); Red Cell Distribution Width 14.6 % (9.3-17.3); White Blood Count 9.4 T/CUMM (4-12)
[2021-05-04] MEDS: HEPARIN 5,000 UNIT/1 ML VIAL SUBCUT SCH ×2 (03:53→15:00)
[2021-05-04 04:17] LABS: Albumin 2.4 G/DL (3.4-5.0); Calcium 9.6 MG/DL (8.5-10.1); Total Protein 5.4 G/DL (6.4-8.2)
[2021-05-04 04:35] LABS: Risk Ratio 6.75; VLDL Cholesterol 24.8 MG/DL
[2021-05-04] MEDS ORDERED: POTASSIUM CHLORIDE 20 MEQ TABLET PO ONE (05:02)
[2021-05-04] MEDS: oxyCODONE IR 5 MG TABLET PO PRN ×3 (06:13→19:00)
[2021-05-04] MEDS: FUROSEMIDE 40 MG/4 ML VIAL IV SCH ×2 (08:26→16:38)
[2021-05-04] MEDS: ASPIRIN CHEW 81 MG TABLET PO SCH (08:49)
[2021-05-04] MEDS: METOPROLOL TARTRATE 50 MG TABLET PO SCH ×2 (08:50→21:22)
[2021-05-04] MEDS: CLOPIDOGREL 75 MG TABLET PO SCH (08:50)
[2021-05-04] MEDS ORDERED: CALCIUM CARBONATE CHEW 500 MG TABLET PO ONE (12:22)
[2021-05-04 12:38] LABS: Hyaline Casts,Urine 17 /LPF (0-3); Mucus,Urine Occasional /LPF (Occasional); RBC,Urine 12 /HPF (0-4); Squamous Epithelial Cell,Urine Occasional /HPF (0-10)
[2021-05-04 12:46] LABS: Glucose,Urine (UA) Negative (Negative); Protein,Urine 30 MG/DL; Urine Appearance Clear (Clear); Urine Color Yellow (Yellow)
[2021-05-04 12:47] LABS: Bilirubin,Urine Negative (Negative); Blood, Urine Moderate mg/dL (Negative); Ketones,Urine Negative (Negative); Nitrite,Urine Negative (Negative); Urine Urobilinogen 0.2 EU/DL (<2.0)
[2021-05-04] MEDS: metOLazone 5 MG TABLET PO SCH (21:22)
[2021-05-04] MEDS: TEMAZEPAM 15 MG CAPSULE PO PRN (22:18)
[2021-05-05 05:52] LABS: Basophils # 0.1 10*3/uL (0.0-0.2); Basophils % 1.3 % (0.0-0.8); Eosinophils # 0.6 10*3/uL (0.0-0.87); Eosinophils % 7.9 % (0.00-10.9); Hematocrit 30.1 VOL% (35.7-47.0); Hemoglobin 10.1 GM/DL (12.0-16.0); Immature Granulocytes % 0.4 %; Immature Granulocytes Absolute 0.03 #; Lymphocytes # 0.9 10*3/uL (1.4-4.0); Lymphocytes % 11.9 % (21.3-54.2); Mean Corpuscular HGB Conc 33.6 GM/DL (32-36); Mean Corpuscular Volume 89.3 FL (87-102); Mean Platelet Volume 10.8 FL (9.6-12.0); Monocytes % 16.4 % (1.7-12.7); Neutrophils % 62.1 % (38.7-73.9); Platelet Count 263 T/CUMM (130-400); Red Blood Count 3.37 MC/CUMM (3.8-5.5); Red Cell Distribution Width 14.7 % (9.3-17.3); White Blood Count 7.6 T/CUMM (4-12)
[2021-05-05 06:07] LABS: Calcium 9.6 MG/DL (8.5-10.1); Osmolality,Calculated 299.4 MOS/KG (273-304); Potassium 3.4 MMOL/L (3.5-5.1)
[2021-05-05] MEDS: HEPARIN 5,000 UNIT/1 ML VIAL SUBCUT SCH ×2 (06:26→14:43)
[2021-05-05 06:41] LABS: Eosinophils 5 % (0-10); Lymphocytes 9 % (20-55); Segmented Neutrophils 72 % (50-85); Total Cells Counted 100
[2021-05-05 06:42] LABS: Hypochromia Slight; Microcytosis Slight; Platelet Estimate Normal
[2021-05-05] MEDS: FUROSEMIDE 40 MG/4 ML VIAL IV SCH ×2 (09:35→16:27)
[2021-05-05] MEDS: ASPIRIN CHEW 81 MG TABLET PO SCH (10:23)
[2021-05-05] MEDS: METOPROLOL TARTRATE 50 MG TABLET PO SCH ×2 (10:24→20:53)
[2021-05-05] MEDS: CLOPIDOGREL 75 MG TABLET PO SCH (10:25)
[2021-05-05] MEDS: metOLazone 5 MG TABLET PO SCH ×2 (10:25→20:53)
[2021-05-05] MEDS ORDERED: ALBUMIN 25% 25 GM/100 ML VIAL IV ONE (11:26)
[2021-05-05] MEDS ORDERED: FUROSEMIDE 40 MG/4 ML VIAL IV ONE (11:27)
[2021-05-05] MEDS: POTASSIUM CHLORIDE 20 MEQ TABLET PO SCH (14:41)
[2021-05-05] MEDS: CIPROFLOXACIN 500 MG TABLET PO SCH ×2 (14:41→20:53)
[2021-05-05] MEDS: oxyCODONE IR 5 MG TABLET PO PRN ×2 (14:42→22:10)
[2021-05-05] MEDS: TEMAZEPAM 15 MG CAPSULE PO PRN (20:53)
[2021-05-06] MEDS: HEPARIN 5,000 UNIT/1 ML VIAL SUBCUT SCH ×2 (02:01→15:00)
[2021-05-06 06:16] LABS: Basophils # 0.1 10*3/uL (0.0-0.2); Eosinophils # 0.5 10*3/uL (0.0-0.87); Eosinophils % 5.1 % (0.00-10.9); Hematocrit 30.3 VOL% (35.7-47.0); Hemoglobin 9.9 GM/DL (12.0-16.0); Immature Granulocytes % 0.4 %; Immature Granulocytes Absolute 0.04 #; Lymphocytes # 0.8 10*3/uL (1.4-4.0); Lymphocytes % 8.1 % (21.3-54.2); Mean Corpuscular HGB Conc 32.7 GM/DL (32-36); Mean Corpuscular Volume 89.1 FL (87-102); Mean Platelet Volume 11.4 FL (9.6-12.0); Monocytes % 14.8 % (1.7-12.7); NRBC # 0.02 10*3/uL; Neutrophils % 70.6 % (38.7-73.9); Platelet Count 281 T/CUMM (130-400); Red Cell Distribution Width 14.6 % (9.3-17.3); White Blood Count 9.4 T/CUMM (4-12)
[2021-05-06 06:52] LABS: Calcium 10.1 MG/DL (8.5-10.1); Osmolality,Calculated 299.4 MOS/KG (273-304); Potassium 3.5 MMOL/L (3.5-5.1)
[2021-05-06 06:55] LABS: Albumin 2.6 G/DL (3.4-5.0); Bilirubin,Direct 1.2 MG/DL (0.0-0.20); Bilirubin,Indirect 0.6 MG/DL (0.0-1.0); Bilirubin,Total 1.8 MG/DL (0.20-1.00); Total Protein 5.8 G/DL (6.4-8.2)
[2021-05-06 07:50] LABS: Schistocytes Few; Target Cells Few
[2021-05-06 07:51] LABS: Anisocytosis 1+; Burr Cells Few; Elliptocytes Few; Helmet Cells Few; Platelet Estimate Normal
[2021-05-06] MEDS: METOPROLOL TARTRATE 50 MG TABLET PO SCH ×2 (10:12→21:09)
[2021-05-06] MEDS: CLOPIDOGREL 75 MG TABLET PO SCH (10:12)
[2021-05-06] MEDS: POTASSIUM CHLORIDE 20 MEQ TABLET PO SCH (10:12)
[2021-05-06] MEDS: CIPROFLOXACIN 500 MG TABLET PO SCH ×2 (10:12→21:09)
[2021-05-06] MEDS: ASPIRIN CHEW 81 MG TABLET PO SCH (10:12)
[2021-05-06] MEDS: metOLazone 5 MG TABLET PO SCH ×2 (10:12→21:10)
[2021-05-06] MEDS: ALBUMIN 25% 25 GM/100 ML VIAL IV SCH ×2 (12:02→21:10)
[2021-05-06] MEDS: FUROSEMIDE 40 MG/4 ML VIAL IV SCH ×2 (14:10→22:35)
[2021-05-06] MEDS: TEMAZEPAM 15 MG CAPSULE PO PRN (21:09)
[2021-05-06] MEDS: oxyCODONE IR 5 MG TABLET PO PRN (21:14)
[2021-05-07] MEDS: ALBUMIN 25% 25 GM/100 ML VIAL IV SCH ×2 (03:14→13:26)
[2021-05-07] MEDS: HEPARIN 5,000 UNIT/1 ML VIAL SUBCUT SCH ×2 (03:28→15:11)
[2021-05-07 05:28] LABS: Basophils # 0.1 10*3/uL (0.0-0.2); Basophils % 0.8 % (0.0-0.8); Eosinophils # 0.6 10*3/uL (0.0-0.87); Eosinophils % 7.7 % (0.00-10.9); Hemoglobin 8.7 GM/DL (12.0-16.0); Immature Granulocytes % 0.5 %; Immature Granulocytes Absolute 0.04 #; Lymphocytes # 0.9 10*3/uL (1.4-4.0); Lymphocytes % 11.8 % (21.3-54.2); Mean Corpuscular HGB Conc 33.5 GM/DL (32-36); Mean Corpuscular Volume 88.1 FL (87-102); Mean Platelet Volume 11.5 FL (9.6-12.0); Monocytes % 15.7 % (1.7-12.7); Neutrophils % 63.5 % (38.7-73.9); Platelet Count 246 T/CUMM (130-400); Red Blood Count 2.95 MC/CUMM (3.8-5.5); Red Cell Distribution Width 14.6 % (9.3-17.3); White Blood Count 7.8 T/CUMM (4-12)
[2021-05-07 05:49] LABS: Calcium 10.4 MG/DL (8.5-10.1); Osmolality,Calculated 299.7 MOS/KG (273-304); Potassium 3.5 MMOL/L (3.5-5.1)
[2021-05-07 06:02] LABS: Eosinophils 7 % (0-10); Lymphocytes 14 % (20-55); Segmented Neutrophils 66 % (50-85); Total Cells Counted 100
[2021-05-07 06:03] LABS: Hypochromia 1+; Microcytosis 1+; Ovalocytes Few; Platelet Estimate Normal
[2021-05-07] MEDS: METOPROLOL TARTRATE 50 MG TABLET PO SCH ×2 (10:38→20:19)
[2021-05-07] MEDS: CLOPIDOGREL 75 MG TABLET PO SCH (10:38)
[2021-05-07] MEDS: metOLazone 5 MG TABLET PO SCH (10:38)
[2021-05-07] MEDS: CIPROFLOXACIN 500 MG TABLET PO SCH ×2 (10:38→20:17)
[2021-05-07] MEDS: POTASSIUM CHLORIDE 20 MEQ TABLET PO SCH (10:38)
[2021-05-07] MEDS: ASPIRIN CHEW 81 MG TABLET PO SCH (10:39)
[2021-05-07] MEDS ORDERED: diphenhydrAMINE CAP 25 MG CAPSULE PO ONE (11:38)
[2021-05-07] MEDS ORDERED: DIAZEPAM 5 MG TABLET PO ONE (11:38)
[2021-05-07] MEDS ORDERED: SODIUM CHLORIDE 0.9% 1,000 ML IV SCH (12:00)
[2021-05-07] MEDS: FUROSEMIDE 40 MG/4 ML VIAL IV SCH (13:26)
[2021-05-07] MEDS: FUROSEMIDE 20 MG TABLET PO SCH ×2 (15:11→20:18)
[2021-05-07] MEDS: oxyCODONE IR 5 MG TABLET PO PRN ×2 (15:16→20:18)
[2021-05-07] MEDS: TEMAZEPAM 15 MG CAPSULE PO PRN (20:17)
[2021-05-08] MEDS: HEPARIN 5,000 UNIT/1 ML VIAL SUBCUT SCH (02:11)
[2021-05-08 04:52] LABS: Basophils # 0.1 10*3/uL (0.0-0.2); Basophils % 1.1 % (0.0-0.8); Eosinophils # 0.4 10*3/uL (0.0-0.87); Eosinophils % 5.9 % (0.00-10.9); Hematocrit 27.8 VOL% (35.7-47.0); Hemoglobin 9.2 GM/DL (12.0-16.0); Immature Granulocytes % 0.4 %; Immature Granulocytes Absolute 0.03 #; Lymphocytes # 0.8 10*3/uL (1.4-4.0); Lymphocytes % 10.5 % (21.3-54.2); Mean Corpuscular HGB Conc 33.1 GM/DL (32-36); Mean Corpuscular Volume 88.3 FL (87-102); Mean Platelet Volume 11.8 FL (9.6-12.0); Monocytes % 17.3 % (1.7-12.7); Neutrophils % 64.8 % (38.7-73.9); Platelet Count 236 T/CUMM (130-400); Red Blood Count 3.15 MC/CUMM (3.8-5.5); Red Cell Distribution Width 14.9 % (9.3-17.3); White Blood Count 7.5 T/CUMM (4-12)
[2021-05-08 05:30] LABS: Eosinophils 8 % (0-10); Hypochromia 1+; Lymphocytes 9 % (20-55); Microcytosis 1+; Ovalocytes Few; Segmented Neutrophils 67 % (50-85); Total Cells Counted 100
[2021-05-08 05:31] LABS: Platelet Estimate Normal
[2021-05-08 05:48] LABS: Albumin 3.4 G/DL (3.4-5.0); Osmolality,Calculated 298.8 MOS/KG (273-304); Potassium 3.9 MMOL/L (3.5-5.1); Total Protein 6.4 G/DL (6.4-8.2)
[2021-05-08] MEDS: FUROSEMIDE 20 MG TABLET PO SCH ×3 (10:07→20:13)
[2021-05-08] MEDS: ASPIRIN CHEW 81 MG TABLET PO SCH (10:07)
[2021-05-08] MEDS: CIPROFLOXACIN 500 MG TABLET PO SCH ×2 (10:08→20:13)
[2021-05-08] MEDS: METOPROLOL TARTRATE 50 MG TABLET PO SCH ×2 (10:08→20:13)
[2021-05-08] MEDS: POTASSIUM CHLORIDE 20 MEQ TABLET PO SCH (10:08)
[2021-05-08] MEDS: CLOPIDOGREL 75 MG TABLET PO SCH (10:08)
[2021-05-08 10:45] LABS: Hepatitis B Core IgM Quant 0.15 Index; Hepatitis B Surface Ag Quant < 0.10 Index; Hepatitis B Surface Ag Result Non-Reactive (NonReactive); Hepatitis C Virus Ab Quant 0.03 Index; Hepatitis C Virus Ab Result Non-Reactive (NonReactive)
[2021-05-08 16:01] LABS: Lambda Free Light Chain 1.02 mg/dL
[2021-05-08] MEDS: TEMAZEPAM 15 MG CAPSULE PO PRN (19:19)
[2021-05-08] MEDS: oxyCODONE IR 5 MG TABLET PO PRN (19:20)
[2021-05-09] MEDS ORDERED: LIDOCAINE 2% 5 ML VIAL ONE (07:50)
[2021-05-09] MEDS ORDERED: fentaNYL 100 MCG/2 ML VIAL ONE (07:50)
[2021-05-09] MEDS ORDERED: MIDAZOLAM 2 MG/2 ML VIAL ONE (07:50)
[2021-05-09] MEDS ORDERED: propofoL 200 MG/20 ML VIAL IV ONE ×2 (07:50→08:59)
[2021-05-09] MEDS ORDERED: LIDOCAINE 1%/EPI INJ 20 ML VIAL ONE (08:14)
[2021-05-09] MEDS ORDERED: BUPIVACAINE MPF 0.25% 30 ML VIAL ONE (08:14)
[2021-05-09] MEDS ORDERED: HEPARIN 5,000 UNIT/1 ML VIAL ONE (08:14)
[2021-05-09] MEDS: SODIUM CHLORIDE 0.9% 250 ML IV SCH (08:35)
[2021-05-09] MEDS ORDERED: SODIUM CHLORIDE 0.9% 100 ML IV ONE (08:59)
[2021-05-09] MEDS ORDERED: ETOMIDATE 40 MG/20 ML VIAL IV ONE (08:59)
[2021-05-09] MEDS ORDERED: ceFAZolin 1,000 MG VIAL ONE (08:59)
[2021-05-09] MEDS: ASPIRIN CHEW 81 MG TABLET PO SCH (09:36)
[2021-05-09] MEDS: FUROSEMIDE 20 MG TABLET PO SCH ×2 (09:37→16:58)
[2021-05-09] MEDS: POTASSIUM CHLORIDE 20 MEQ TABLET PO SCH (09:37)
[2021-05-09] MEDS: CLOPIDOGREL 75 MG TABLET PO SCH (09:37)
[2021-05-09] MEDS: METOPROLOL TARTRATE 50 MG TABLET PO SCH ×2 (09:37→21:10)
[2021-05-09] MEDS: CIPROFLOXACIN 500 MG TABLET PO SCH ×2 (09:37→21:10)
[2021-05-09] MEDS ORDERED: HEPARIN 10,000 UNIT/10 ML VIAL IV SCH (10:45)
[2021-05-09] MEDS: oxyCODONE IR 5 MG TABLET PO PRN ×3 (12:53→21:10)
[2021-05-09] MEDS: TEMAZEPAM 15 MG CAPSULE PO PRN (21:09)
[2021-05-10 06:16] LABS: Basophils # 0.1 10*3/uL (0.0-0.2); Basophils % 0.8 % (0.0-0.8); Eosinophils # 0.4 10*3/uL (0.0-0.87); Eosinophils % 4.4 % (0.00-10.9); Hematocrit 30.1 VOL% (35.7-47.0); Hemoglobin 9.8 GM/DL (12.0-16.0); Immature Granulocytes % 0.4 %; Immature Granulocytes Absolute 0.03 #; Lymphocytes # 0.8 10*3/uL (1.4-4.0); Lymphocytes % 10.1 % (21.3-54.2); Mean Corpuscular HGB Conc 32.6 GM/DL (32-36); Mean Corpuscular Volume 89.3 FL (87-102); Mean Platelet Volume 12.3 FL (9.6-12.0); Monocytes % 15.7 % (1.7-12.7); NRBC # 0.02 10*3/uL; Neutrophils % 68.6 % (38.7-73.9); Platelet Count 226 T/CUMM (130-400); Red Blood Count 3.37 MC/CUMM (3.8-5.5); Red Cell Distribution Width 15.4 % (9.3-17.3); White Blood Count 7.9 T/CUMM (4-12)
[2021-05-10 06:33] LABS: Albumin 3.1 G/DL (3.4-5.0); Bilirubin,Total 3.6 MG/DL (0.20-1.00); Calcium 8.6 MG/DL (8.5-10.1); Osmolality,Calculated 288.5 MOS/KG (273-304); Potassium 4.1 MMOL/L (3.5-5.1); Total Protein 6.2 G/DL (6.4-8.2)
[2021-05-10 06:40] LABS: Eosinophils 6 % (0-10); Hypochromia 1+; Lymphocytes 7 % (20-55); Microcytosis 1+; Platelet Estimate Adequate; Segmented Neutrophils 79 % (50-85); Total Cells Counted 100
[2021-05-10] MEDS: POTASSIUM CHLORIDE 20 MEQ TABLET PO SCH (12:13)
[2021-05-10] MEDS: ASPIRIN CHEW 81 MG TABLET PO SCH (12:13)
[2021-05-10] MEDS: CIPROFLOXACIN 500 MG TABLET PO SCH ×2 (12:13→20:42)
[2021-05-10] MEDS: METOPROLOL TARTRATE 50 MG TABLET PO SCH ×2 (12:14→20:42)
[2021-05-10] MEDS: CLOPIDOGREL 75 MG TABLET PO SCH (12:14)
[2021-05-10] MEDS: TEMAZEPAM 15 MG CAPSULE PO PRN (20:42)
[2021-05-10] MEDS: oxyCODONE IR 5 MG TABLET PO PRN (20:42)
[2021-05-11 06:03] LABS: Calcium 8.4 MG/DL (8.5-10.1); Osmolality,Calculated 283.2 MOS/KG (273-304); Potassium 3.8 MMOL/L (3.5-5.1)
[2021-05-11] MEDS ORDERED: CYCLOPHOSPHAMIDE IV ONE (08:45)
[2021-05-11] MEDS ORDERED: SODIUM CHLORIDE 0.9% IV ONE (08:45)
[2021-05-11] MEDS ORDERED: DEXAMETHASONE INJ 20 MG in SODIUM CHLORIDE 0.9% 50 ML IV ONE (08:47)
[2021-05-11] MEDS ORDERED: GRANISETRON 1 MG/1 ML VIAL IV SCH (09:00)
[2021-05-11] MEDS: POTASSIUM CHLORIDE 20 MEQ TABLET PO SCH (09:37)
[2021-05-11] MEDS: METOPROLOL TARTRATE 50 MG TABLET PO SCH ×2 (09:37→20:42)
[2021-05-11] MEDS: CIPROFLOXACIN 500 MG TABLET PO SCH ×2 (09:37→20:42)
[2021-05-11] MEDS: oxyCODONE IR 5 MG TABLET PO PRN ×3 (09:38→20:43)
[2021-05-11] MEDS: CLOPIDOGREL 75 MG TABLET PO SCH (09:38)
[2021-05-11] MEDS: ASPIRIN CHEW 81 MG TABLET PO SCH (09:40)
[2021-05-11] MEDS ORDERED: CYCLOPHOSPHAMIDE INJ 500 MG in SODIUM CHLORIDE 0.9% 250 ML IV ONE (17:00)
[2021-05-11] MEDS: TEMAZEPAM 15 MG CAPSULE PO PRN (20:43)
[2021-05-12 05:07] LABS: Basophils % 0.5 % (0.0-0.8); Eosinophils % 0.2 % (0.00-10.9); Hematocrit 27.5 VOL% (35.7-47.0); Hemoglobin 8.9 GM/DL (12.0-16.0); Immature Granulocytes % 0.5 %; Immature Granulocytes Absolute 0.03 #; Lymphocytes # 0.4 10*3/uL (1.4-4.0); Lymphocytes % 5.6 % (21.3-54.2); Mean Corpuscular HGB Conc 32.4 GM/DL (32-36); Mean Corpuscular Volume 89.6 FL (87-102); Mean Platelet Volume 12.6 FL (9.6-12.0); Monocytes % 6.3 % (1.7-12.7); Neutrophils % 86.9 % (38.7-73.9); Platelet Count 179 T/CUMM (130-400); Red Blood Count 3.07 MC/CUMM (3.8-5.5); Red Cell Distribution Width 15.4 % (9.3-17.3); White Blood Count 6.2 T/CUMM (4-12)
[2021-05-12 05:21] LABS: Calcium 8.1 MG/DL (8.5-10.1); Osmolality,Calculated 275.4 MOS/KG (273-304); Potassium 4.1 MMOL/L (3.5-5.1)
[2021-05-12] MEDS ORDERED: POLYETHYLENE GLYCOL POWDER 17 GM PACK PO PRN (06:08)
[2021-05-12] MEDS: CLOPIDOGREL 75 MG TABLET PO SCH (09:28)
[2021-05-12] MEDS: METOPROLOL TARTRATE 50 MG TABLET PO SCH ×2 (09:28→21:43)
[2021-05-12] MEDS: POTASSIUM CHLORIDE 20 MEQ TABLET PO SCH (09:28)
[2021-05-12] MEDS: CIPROFLOXACIN 500 MG TABLET PO SCH (09:28)
[2021-05-12] MEDS: ASPIRIN CHEW 81 MG TABLET PO SCH (09:28)
[2021-05-12] MEDS ORDERED: FUROSEMIDE 40 MG/4 ML VIAL IV SCH (10:00)
[2021-05-12] MEDS: SODIUM CHLORIDE 0.9% 250 ML IV SCH (10:53)
[2021-05-12] MEDS: oxyCODONE IR 5 MG TABLET PO PRN (17:32)
[2021-05-12] MEDS ORDERED: TEMAZEPAM 15 MG CAPSULE PO ONE (23:00)
[2021-05-13 07:02] LABS: Calcium 8.5 MG/DL (8.5-10.1); Osmolality,Calculated 274.4 MOS/KG (273-304); Potassium 4.4 MMOL/L (3.5-5.1)
[2021-05-13] MEDS: ASPIRIN CHEW 81 MG TABLET PO SCH (09:06)
[2021-05-13] MEDS: CLOPIDOGREL 75 MG TABLET PO SCH (09:06)
[2021-05-13] MEDS: METOPROLOL TARTRATE 50 MG TABLET PO SCH ×2 (09:06→20:48)
[2021-05-13] MEDS ORDERED: TEMAZEPAM 15 MG CAPSULE PO PRN (19:54)
[2021-05-13] MEDS: oxyCODONE IR 5 MG TABLET PO PRN (20:49)
[2021-05-14 05:27] LABS: Osmolality,Calculated 275.5 MOS/KG (273-304); Potassium 4.5 MMOL/L (3.5-5.1)
[2021-05-14] MEDS: oxyCODONE IR 5 MG TABLET PO PRN (09:15)
[2021-05-14 09:49] LABS: Albumin 2.6 G/DL (3.4-5.0); Bilirubin,Direct 1.97 MG/DL (0.0-0.20); Bilirubin,Indirect 0.7 MG/DL (0.0-1.0); Bilirubin,Total 2.7 MG/DL (0.20-1.00); Total Protein 5.7 G/DL (6.4-8.2)
[2021-05-14 11:34] VITALS: BP 132/75
[2021-05-14] MEDS: ASPIRIN CHEW 81 MG TABLET PO SCH (14:00)
[2021-05-14] MEDS: CLOPIDOGREL 75 MG TABLET PO SCH (14:01)
[2021-05-14] MEDS: METOPROLOL TARTRATE 50 MG TABLET PO SCH (14:01)
== END 2021-05-14 16:00 | disposition home health service (06) | DRG 291 ==
LOC: N.EDINP 20:10 → N.ED 20:10 → SUATTDRO 05-04 02:08 → N.TELES 05-04 17:35 → SUATTDRO 05-06 11:35
PROVIDERS: ADMIT Internal Medicine; ATTEND Internal Medicine

== ENCOUNTER 2021-07-18 07:24 | Inpatient (IN) ==
[2021-07-18] MEDS ORDERED: SODIUM CHLORIDE 0.9% 500 ML IV STA (07:59)
[2021-07-18] MEDS ORDERED: PANTOPRAZOLE INJ 80 MG in SODIUM CHLORIDE 0.9% 100 ML IV ONE (07:59)
[2021-07-18] MEDS ORDERED: PANTOPRAZOLE 40 MG VIAL IV ONE (09:03)
[2021-07-18 09:05] LABS: Basophils # 0.1 10*3/uL (0.0-0.2); Basophils % 1.2 % (0.0-0.8); Eosinophils # 0.2 10*3/uL (0.0-0.87); Eosinophils % 2.9 % (0.00-10.9); Hematocrit 33.7 VOL% (35.7-47.0); Hemoglobin 11.3 GM/DL (12.0-16.0); Immature Granulocytes % 0.4 %; Immature Granulocytes Absolute 0.03 #; Lymphocytes # 0.8 10*3/uL (1.4-4.0); Lymphocytes % 10.1 % (21.3-54.2); Mean Corpuscular HGB Conc 33.5 GM/DL (32-36); Mean Corpuscular Volume 87.5 FL (87-102); Mean Platelet Volume 11.7 FL (9.6-12.0); Monocytes # 1.1 10*3/uL (0.11-0.8); Monocytes % 14.3 % (1.7-12.7); Neutrophils % 71.1 % (38.7-73.9); Platelet Count 259 T/CUMM (130-400); Red Blood Count 3.85 MC/CUMM (3.8-5.5); Red Cell Distribution Width 19.2 % (9.3-17.3); White Blood Count 7.7 T/CUMM (4-12)
[2021-07-18 09:15] LABS: INR 1.1; PT Patient Result 11.7 SECS (10.5-12.0)
[2021-07-18 09:22] LABS: Albumin 2.3 G/DL (3.4-5.0); Bilirubin,Total 8.2 MG/DL (0.20-1.00); Calcium 7.8 MG/DL (8.5-10.1); Osmolality,Calculated 274.4 MOS/KG (273-304); Potassium 3.5 MMOL/L (3.5-5.1)
[2021-07-18] MEDS ORDERED: metroNIDAZOLE INJ 500 MG/100 ML PREMIX IV STA (10:00)
[2021-07-18] MEDS ORDERED: CIPROFLOXACIN INJ 400 MG/200 ML PREMIX IV ONE (10:00)
[2021-07-18] MEDS ORDERED: ONDANSETRON 4 MG/2 ML VIAL IV ONE (10:49)
[2021-07-18] MEDS ORDERED: HYDROmorphone 1 MG/1 ML SYRINGE IV STA ×2 (10:49)
[2021-07-18] MEDS ORDERED: hydrALAZINE 20 MG/1 ML VIAL IV PRN (11:02)
[2021-07-18] MEDS ORDERED: ONDANSETRON 4 MG/2 ML VIAL IV PRN (11:02)
[2021-07-18] MEDS ORDERED: GLUCAGON 1 MG VIAL IM PRN (11:02)
[2021-07-18] MEDS ORDERED: DEXTROSE 10% 250 ML BAG IV PRN (11:13)
[2021-07-18] MEDS: PANTOPRAZOLE INJ 200 MG in SODIUM CHLORIDE 0.9% 250 ML IV SCH (13:10)
[2021-07-18 19:00] LABS: Hematocrit 32.6 VOL% (35.7-47.0); Hemoglobin 10.6 GM/DL (12.0-16.0)
[2021-07-18] MEDS: TEMAZEPAM 15 MG CAPSULE PO PRN (22:15)
[2021-07-18] MEDS: metroNIDAZOLE INJ 500 MG in PREMIX 1 EACH IV SCH (22:15)
[2021-07-19 03:03] LABS: Basophils # 0.1 10*3/uL (0.0-0.2); Eosinophils # 0.3 10*3/uL (0.0-0.87); Eosinophils % 5.1 % (0.00-10.9); Hematocrit 27.4 VOL% (35.7-47.0); Hemoglobin 9.2 GM/DL (12.0-16.0); Immature Granulocytes % 0.3 %; Immature Granulocytes Absolute 0.02 #; Lymphocytes # 0.6 10*3/uL (1.4-4.0); Lymphocytes % 9.5 % (21.3-54.2); Mean Corpuscular HGB Conc 33.6 GM/DL (32-36); Mean Corpuscular Volume 87.5 FL (87-102); Mean Platelet Volume 11.2 FL (9.6-12.0); Monocytes % 15.7 % (1.7-12.7); Neutrophils % 68.4 % (38.7-73.9); Platelet Count 205 T/CUMM (130-400); Red Blood Count 3.13 MC/CUMM (3.8-5.5); Red Cell Distribution Width 19.4 % (9.3-17.3); White Blood Count 6.3 T/CUMM (4-12)
[2021-07-19 03:12] LABS: PT Patient Result 11.4 SECS (10.5-12.0)
[2021-07-19 03:40] LABS: Albumin 1.9 G/DL (3.4-5.0); Calcium 6.5 MG/DL (8.5-10.1); Osmolality,Calculated 280.1 MOS/KG (273-304); Potassium 3.3 MMOL/L (3.5-5.1); Total Protein 4.3 G/DL (6.4-8.2)
[2021-07-19 03:40] LABS: Eosinophils 5 % (0-10); Lymphocytes 13 % (20-55); Platelet Estimate Adequate; Total Cells Counted 100
[2021-07-19] MEDS: metroNIDAZOLE INJ 500 MG in PREMIX 1 EACH IV SCH ×3 (05:24→21:24)
[2021-07-19] MEDS: CIPROFLOXACIN INJ 400 MG/200 ML PREMIX IV SCH ×2 (06:21→22:30)
[2021-07-19 08:25] LABS: Hematocrit 27.6 VOL% (35.7-47.0); Hemoglobin 9.1 GM/DL (12.0-16.0)
[2021-07-19] MEDS ORDERED: POTASSIUM CHLORIDE 20 MEQ TABLET PO ONE (10:19)
[2021-07-19] MEDS ORDERED: SODIUM CHLORIDE 0.9% 1,000 ML IV SCH (10:30)
[2021-07-19] MEDS: LACTATED RINGERS 1,000 ML IV SCH (11:08)
[2021-07-19] MEDS ORDERED: ONDANSETRON 4 MG/2 ML VIAL ONE (11:10)
[2021-07-19] MEDS: SODIUM CHLORIDE 0.9% 1,000 ML IV SCH (11:13)
[2021-07-19] MEDS: SODIUM CHLORIDE 0.9% 500 ML IV ONE ×2 (11:13→14:36)
[2021-07-19] MEDS: PANTOPRAZOLE INJ 200 MG in SODIUM CHLORIDE 0.9% 250 ML IV SCH (14:35)
[2021-07-19] MEDS: TEMAZEPAM 15 MG CAPSULE PO PRN ×2 (21:24→21:37)
[2021-07-20 05:14] LABS: Basophils # 0.1 10*3/uL (0.0-0.2); Basophils % 1.3 % (0.0-0.8); Eosinophils # 0.5 10*3/uL (0.0-0.87); Eosinophils % 7.7 % (0.00-10.9); Hematocrit 26.2 VOL% (35.7-47.0); Hemoglobin 8.8 GM/DL (12.0-16.0); Immature Granulocytes % 0.3 %; Immature Granulocytes Absolute 0.02 #; Lymphocytes # 0.6 10*3/uL (1.4-4.0); Lymphocytes % 9.6 % (21.3-54.2); Mean Corpuscular HGB Conc 33.6 GM/DL (32-36); Mean Corpuscular Volume 87.3 FL (87-102); Mean Platelet Volume 11.9 FL (9.6-12.0); Monocytes # 1.2 10*3/uL (0.11-0.8); Monocytes % 19.3 % (1.7-12.7); Neutrophils % 61.8 % (38.7-73.9); Platelet Count 232 T/CUMM (130-400); Red Cell Distribution Width 19.8 % (9.3-17.3); White Blood Count 6.2 T/CUMM (4-12)
[2021-07-20 05:32] LABS: Calcium 6.5 MG/DL (8.5-10.1); Osmolality,Calculated 283.1 MOS/KG (273-304); Potassium 3.9 MMOL/L (3.5-5.1)
[2021-07-20] MEDS: metroNIDAZOLE INJ 500 MG in PREMIX 1 EACH IV SCH ×2 (05:33→14:17)
[2021-07-20 05:37] LABS: Eosinophils 8 % (0-10); Lymphocytes 7 % (20-55); Platelet Estimate Adequate; Total Cells Counted 100
[2021-07-20 11:04] LABS: Albumin 1.8 G/DL (3.4-5.0); Bilirubin,Direct 6.81 MG/DL (0.0-0.20); Bilirubin,Indirect 1.2 MG/DL (0.0-1.0); Total Protein 4.4 G/DL (6.4-8.2)
[2021-07-20] MEDS ORDERED: HEPARIN 10,000 UNIT/10 ML VIAL IV SCH (12:00)
[2021-07-20] MEDS: LACTATED RINGERS 1,000 ML IV SCH (12:55)
[2021-07-20] MEDS: SODIUM CHLORIDE 0.9% 1,000 ML IV SCH (12:55)
[2021-07-20 14:41] LABS: Albumin 2.3 G/DL (3.4-5.0); Bilirubin,Direct 8.35 MG/DL (0.0-0.20); Bilirubin,Indirect 1.7 MG/DL (0.0-1.0); Total Protein 5.3 G/DL (6.4-8.2)
[2021-07-20] MEDS ORDERED: ALPRAZolam 0.5 MG TABLET PO ONE (15:09)
[2021-07-20] MEDS: CIPROFLOXACIN INJ 400 MG/200 ML PREMIX IV SCH (18:22)
[2021-07-20] MEDS: metroNIDAZOLE INJ 500 MG/100 ML PREMIX IV SCH (21:10)
[2021-07-20] MEDS: PANTOPRAZOLE 40 MG TABLET PO SCH (21:11)
[2021-07-20] MEDS: TEMAZEPAM 15 MG CAPSULE PO PRN (21:11)
[2021-07-21] MEDS: metroNIDAZOLE INJ 500 MG/100 ML PREMIX IV SCH ×2 (05:12→12:41)
[2021-07-21 05:30] LABS: Basophils # 0.1 10*3/uL (0.0-0.2); Basophils % 1.4 % (0.0-0.8); Eosinophils # 0.3 10*3/uL (0.0-0.87); Eosinophils % 5.4 % (0.00-10.9); Hematocrit 26.8 VOL% (35.7-47.0); Hemoglobin 8.9 GM/DL (12.0-16.0); Immature Granulocytes % 0.3 %; Immature Granulocytes Absolute 0.02 #; Lymphocytes # 0.7 10*3/uL (1.4-4.0); Lymphocytes % 12.4 % (21.3-54.2); Mean Corpuscular HGB Conc 33.2 GM/DL (32-36); Mean Corpuscular Volume 87.6 FL (87-102); Mean Platelet Volume 11.7 FL (9.6-12.0); Monocytes # 1.3 10*3/uL (0.11-0.8); Monocytes % 22.2 % (1.7-12.7); Neutrophils % 58.3 % (38.7-73.9); Platelet Count 246 T/CUMM (130-400); Red Blood Count 3.06 MC/CUMM (3.8-5.5); Red Cell Distribution Width 20.5 % (9.3-17.3); White Blood Count 5.9 T/CUMM (4-12)
[2021-07-21 05:52] LABS: Calcium 7.3 MG/DL (8.5-10.1); Potassium 3.5 MMOL/L (3.5-5.1)
[2021-07-21 06:04] LABS: Eosinophils 4 % (0-10); Hypochromia Slight; Lymphocytes 12 % (20-55); Platelet Estimate Normal; Total Cells Counted 100
[2021-07-21] MEDS: PANTOPRAZOLE 40 MG TABLET PO SCH (09:52)
[2021-07-21] MEDS: CIPROFLOXACIN INJ 400 MG/200 ML PREMIX IV SCH (11:13)
[2021-07-21 12:25] VITALS: BP 109/67
[2021-07-21 13:28] LABS: Bilirubin,Direct 6.93 MG/DL (0.0-0.20); Bilirubin,Indirect 1.8 MG/DL (0.0-1.0); Bilirubin,Total 8.7 MG/DL (0.20-1.00); Total Protein 4.4 G/DL (6.4-8.2)
[2021-07-21] MEDS ORDERED: metroNIDAZOLE 500 MG TABLET PO SCH (15:00)
== END 2021-07-21 15:09 | disposition home or self-care (01) | DRG 377 ==
LOC: N.ED 07:24 → SUATTDRO 11:02 → N.EDINP 11:02 → N.5E 16:22
PROVIDERS: ADMIT Internal Medicine; ATTEND Internal Medicine

== ENCOUNTER 2021-08-01 20:19 | Inpatient (IN) ==
[2021-08-01] MEDS ORDERED: SODIUM CHLORIDE 0.9% 500 ML IV STA (20:51)
[2021-08-01] MEDS ORDERED: ACETAMINOPHEN 500 MG TABLET PO STA (20:51)
[2021-08-01 21:11] LABS: Basophils # 0.1 10*3/uL (0.0-0.2); Basophils % 1.5 % (0.0-0.8); Eosinophils # 0.3 10*3/uL (0.0-0.87); Eosinophils % 3.4 % (0.00-10.9); Hematocrit 31.2 VOL% (35.7-47.0); Hemoglobin 10.4 GM/DL (12.0-16.0); Immature Granulocytes % 0.5 %; Immature Granulocytes Absolute 0.04 #; Lymphocytes # 0.7 10*3/uL (1.4-4.0); Lymphocytes % 9.6 % (21.3-54.2); Mean Corpuscular HGB Conc 33.3 GM/DL (32-36); Mean Corpuscular Volume 90.7 FL (87-102); Mean Platelet Volume 11.4 FL (9.6-12.0); Monocytes # 1.5 10*3/uL (0.11-0.8); Monocytes % 20.5 % (1.7-12.7); Neutrophils % 64.5 % (38.7-73.9); Platelet Count 310 T/CUMM (130-400); Red Blood Count 3.44 MC/CUMM (3.8-5.5); Red Cell Distribution Width 19.6 % (9.3-17.3); White Blood Count 7.4 T/CUMM (4-12)
[2021-08-01 21:30] LABS: Albumin 1.8 G/DL (3.4-5.0); Calcium 7.5 MG/DL (8.5-10.1); Total Protein 4.8 G/DL (6.4-8.2)
[2021-08-01 21:40] LABS: Bilirubin,Total 14.4 MG/DL (0.20-1.00)
[2021-08-01] MEDS ORDERED: PIPERACILLIN/TAZOBACTAM 3,375 MG in SODIUM CHLORIDE 0.9% 100 ML IV STA (21:54)
[2021-08-01 22:07] LABS: Eosinophils 2 % (0-10); Lymphocytes 11 % (20-55); Platelet Estimate Adequate; Total Cells Counted 100
[2021-08-01 22:09] LABS: Poikilocytosis 1+; Target Cells 1+
[2021-08-02] MEDS ORDERED: NOREPINEPHRINE 8 MG in SODIUM CHLORIDE 0.9% 242 ML IV PRN (00:28)
[2021-08-02] MEDS ORDERED: ALBUTEROL 2.5 MG/3 ML NEB RESP TX PRN (00:29)
[2021-08-02] MEDS: NOREPINEPHRINE 8 MG in SODIUM CHLORIDE 0.9% 242 ML IV PRN ×2 (00:48→16:00)
[2021-08-02] MEDS ORDERED: ALBUTEROL/IPRATROPIUM 3 ML NEB RESP TX SCH (01:00)
[2021-08-02 01:43] LABS: Ammonia < 10 UMOL/L (11-32)
[2021-08-02 01:44] LABS: Lactic Acid 0.7 MMOL/L (0.4-2.0)
[2021-08-02 05:19] LABS: Basophils # 0.1 10*3/uL (0.0-0.2); Eosinophils # 0.2 10*3/uL (0.0-0.87); Eosinophils % 2.9 % (0.00-10.9); Hematocrit 28.7 VOL% (35.7-47.0); Hemoglobin 9.5 GM/DL (12.0-16.0); Immature Granulocytes % 0.5 %; Immature Granulocytes Absolute 0.04 #; Lymphocytes # 0.9 10*3/uL (1.4-4.0); Lymphocytes % 10.5 % (21.3-54.2); Mean Corpuscular HGB Conc 33.1 GM/DL (32-36); Mean Corpuscular Volume 89.1 FL (87-102); Mean Platelet Volume 11.6 FL (9.6-12.0); Monocytes # 1.7 10*3/uL (0.11-0.8); Monocytes % 20.6 % (1.7-12.7); Neutrophils % 64.5 % (38.7-73.9); Platelet Count 280 T/CUMM (130-400); Red Blood Count 3.22 MC/CUMM (3.8-5.5); Red Cell Distribution Width 19.2 % (9.3-17.3); White Blood Count 8.4 T/CUMM (4-12)
[2021-08-02 05:37] LABS: Albumin 1.6 G/DL (3.4-5.0); Total Protein 4.2 G/DL (6.4-8.2)
[2021-08-02 05:43] LABS: Eosinophils 5 % (0-10); Lymphocytes 7 % (20-55); Platelet Estimate Normal; Total Cells Counted 100
[2021-08-02] MEDS: MIDODRINE 5 MG TABLET PO SCH ×3 (06:19→18:40)
[2021-08-02] MEDS: fentaNYL 25 MCG/HR PATCH TRANSDERM SCH (06:19)
[2021-08-02] MEDS ORDERED: VANCOMYCIN INJ 1,500 MG in SODIUM CHLORIDE 0.9% 500 ML IV ONE (08:00)
[2021-08-02] MEDS: CALCIUM CARBONATE CHEW 500 MG TABLET PO SCH ×3 (08:52→17:17)
[2021-08-02] MEDS: ONDANSETRON 4 MG/2 ML VIAL IV PRN (09:25)
[2021-08-02] MEDS: ASPIRIN CHEW 81 MG TABLET PO SCH (09:30)
[2021-08-02] MEDS: ESTRADIOL 2 MG TABLET PO SCH ×2 (09:30→11:23)
[2021-08-02] MEDS: GABAPENTIN 100 MG CAPSULE PO SCH ×2 (09:30→11:24)
[2021-08-02] MEDS: FAMOTIDINE 20 MG/2 ML VIAL IV SCH (09:30)
[2021-08-02 10:09] LABS: INR 1.3; PT Patient Result 13.9 SECS (10.5-12.0)
[2021-08-02] MEDS: LENALIDOMIDE 5 MG PO SCH (10:34)
[2021-08-02] MEDS: oxyCODONE IR 5 MG TABLET PO PRN ×2 (11:31→19:32)
[2021-08-02] MEDS ORDERED: GENTAMICIN INJ 80 MG/50 ML PREMIX IV ONE (13:30)
[2021-08-02] MEDS: PIPERACILLIN/TAZOBACTAM 3,375 MG in SODIUM CHLORIDE 0.9% 100 ML IV SCH (14:00)
[2021-08-02] MEDS: PROMETHAZINE 25 MG TABLET PO PRN (14:20)
[2021-08-03] MEDS: PIPERACILLIN/TAZOBACTAM 3,375 MG in SODIUM CHLORIDE 0.9% 100 ML IV SCH ×2 (02:06→14:11)
[2021-08-03 04:37] LABS: Basophils # 0.1 10*3/uL (0.0-0.2); Basophils % 1.4 % (0.0-0.8); Eosinophils # 0.2 10*3/uL (0.0-0.87); Eosinophils % 2.3 % (0.00-10.9); Hematocrit 29.2 VOL% (35.7-47.0); Hemoglobin 9.6 GM/DL (12.0-16.0); Immature Granulocytes % 0.3 %; Immature Granulocytes Absolute 0.03 #; Lymphocytes # 0.7 10*3/uL (1.4-4.0); Lymphocytes % 7.4 % (21.3-54.2); Mean Corpuscular HGB Conc 32.9 GM/DL (32-36); Mean Corpuscular Volume 89.8 FL (87-102); Mean Platelet Volume 11.2 FL (9.6-12.0); Monocytes # 1.8 10*3/uL (0.11-0.8); Monocytes % 19.3 % (1.7-12.7); Neutrophils % 69.3 % (38.7-73.9); Platelet Count 312 T/CUMM (130-400); Red Blood Count 3.25 MC/CUMM (3.8-5.5); Red Cell Distribution Width 19.3 % (9.3-17.3); White Blood Count 9.1 T/CUMM (4-12)
[2021-08-03 04:52] LABS: Phosphorous 2.5 MG/DL (2.5-4.9); Uric Acid 3.8 MG/DL (2.6-6.0)
[2021-08-03 04:55] LABS: Albumin 1.4 G/DL (3.4-5.0); Calcium 6.4 MG/DL (8.5-10.1); Potassium 3.2 MMOL/L (3.5-5.1); Total Protein 4.1 G/DL (6.4-8.2)
[2021-08-03 04:57] LABS: Bilirubin,Total 13.3 MG/DL (0.20-1.00)
[2021-08-03 05:04] LABS: Band Neutrophils 2 % (0-10); Eosinophils 2 % (0-10); Lymphocytes 9 % (20-55); Total Cells Counted 100
[2021-08-03 05:05] LABS: Microcytosis 1+; Target Cells Few
[2021-08-03 05:06] LABS: Platelet Estimate Normal
[2021-08-03] MEDS: MIDODRINE 5 MG TABLET PO SCH ×3 (05:37→17:22)
[2021-08-03] MEDS: ONDANSETRON 4 MG/2 ML VIAL IV PRN ×2 (07:15→23:24)
[2021-08-03] MEDS: CALCIUM CARBONATE CHEW 500 MG TABLET PO SCH ×4 (09:34→17:21)
[2021-08-03] MEDS: ASPIRIN CHEW 81 MG TABLET PO SCH (09:34)
[2021-08-03] MEDS: LENALIDOMIDE 5 MG PO SCH (09:34)
[2021-08-03] MEDS: ESTRADIOL 2 MG TABLET PO SCH (09:34)
[2021-08-03] MEDS: GABAPENTIN 100 MG CAPSULE PO SCH (09:35)
[2021-08-03] MEDS: FAMOTIDINE 20 MG/2 ML VIAL IV SCH (09:35)
[2021-08-03 10:08] LABS: Hepatitis B Core IgM Quant < 0.05 Index; Hepatitis B Surface Ag Quant < 0.10 Index; Hepatitis B Surface Ag Result Non-Reactive (NonReactive); Hepatitis C Virus Ab Quant 0.03 Index; Hepatitis C Virus Ab Result Non-Reactive (NonReactive)
[2021-08-03] MEDS: oxyCODONE IR 5 MG TABLET PO PRN (12:40)
[2021-08-03] MEDS: NOREPINEPHRINE 8 MG in SODIUM CHLORIDE 0.9% 242 ML IV PRN (15:30)
[2021-08-03] MEDS ORDERED: IBUPROFEN 400 MG TABLET PO ONE (20:30)
[2021-08-04] MEDS: PIPERACILLIN/TAZOBACTAM 3,375 MG in SODIUM CHLORIDE 0.9% 100 ML IV SCH ×2 (01:49→13:21)
[2021-08-04] MEDS ORDERED: ALBUMIN 25% 12.5 GM/50 ML VIAL IV ONE (02:23)
[2021-08-04] MEDS: NOREPINEPHRINE 8 MG in SODIUM CHLORIDE 0.9% 242 ML IV PRN (03:42)
[2021-08-04 04:40] LABS: Basophils # 0.1 10*3/uL (0.0-0.2); Basophils % 1.8 % (0.0-0.8); Eosinophils # 0.2 10*3/uL (0.0-0.87); Eosinophils % 2.1 % (0.00-10.9); Hematocrit 28.3 VOL% (35.7-47.0); Hemoglobin 9.3 GM/DL (12.0-16.0); Immature Granulocytes % 0.4 %; Immature Granulocytes Absolute 0.03 #; Lymphocytes # 0.8 10*3/uL (1.4-4.0); Mean Corpuscular HGB Conc 32.9 GM/DL (32-36); Mean Corpuscular Volume 90.1 FL (87-102); Mean Platelet Volume 11.5 FL (9.6-12.0); Monocytes # 1.9 10*3/uL (0.11-0.8); Monocytes % 24.1 % (1.7-12.7); Neutrophils % 61.6 % (38.7-73.9); Platelet Count 288 T/CUMM (130-400); Red Blood Count 3.14 MC/CUMM (3.8-5.5); Red Cell Distribution Width 18.9 % (9.3-17.3); White Blood Count 7.7 T/CUMM (4-12)
[2021-08-04 05:02] LABS: Calcium 6.5 MG/DL (8.5-10.1); Osmolality,Calculated 269.2 MOS/KG (273-304); Potassium 3.1 MMOL/L (3.5-5.1)
[2021-08-04 05:06] LABS: Eosinophils 3 % (0-10); Lymphocytes 10 % (20-55); Platelet Estimate Normal; Total Cells Counted 100
[2021-08-04 05:07] LABS: Hypochromia Slight
[2021-08-04] MEDS: MIDODRINE 5 MG TABLET PO SCH ×3 (06:11→18:21)
[2021-08-04] MEDS: ONDANSETRON 4 MG/2 ML VIAL IV PRN (07:20)
[2021-08-04] MEDS: CALCIUM CARBONATE CHEW 500 MG TABLET PO SCH ×3 (08:20→18:20)
[2021-08-04] MEDS: ASPIRIN CHEW 81 MG TABLET PO SCH (08:20)
[2021-08-04] MEDS: FAMOTIDINE 20 MG TABLET PO SCH (08:21)
[2021-08-04 09:24] LABS: Albumin 1.8 G/DL (3.4-5.0); Bilirubin,Direct 11.08 MG/DL (0.0-0.20); Total Protein 4.2 G/DL (6.4-8.2)
[2021-08-04 09:26] LABS: Bilirubin,Indirect 2.9 MG/DL (0.0-1.0)
[2021-08-04] MEDS: oxyCODONE IR 5 MG TABLET PO PRN (12:25)
[2021-08-04] MEDS: LENALIDOMIDE 5 MG PO SCH (18:21)
[2021-08-05] MEDS: PIPERACILLIN/TAZOBACTAM 3,375 MG in SODIUM CHLORIDE 0.9% 100 ML IV SCH ×2 (01:24→15:45)
[2021-08-05] MEDS: NOREPINEPHRINE 8 MG in SODIUM CHLORIDE 0.9% 242 ML IV PRN (02:23)
[2021-08-05 02:55] LABS: Basophils # 0.1 10*3/uL (0.0-0.2); Basophils % 1.6 % (0.0-0.8); Eosinophils # 0.2 10*3/uL (0.0-0.87); Eosinophils % 3.3 % (0.00-10.9); Hematocrit 28.2 VOL% (35.7-47.0); Hemoglobin 9.5 GM/DL (12.0-16.0); Immature Granulocytes % 0.4 %; Immature Granulocytes Absolute 0.03 #; Lymphocytes # 1.1 10*3/uL (1.4-4.0); Lymphocytes % 15.4 % (21.3-54.2); Mean Corpuscular HGB Conc 33.7 GM/DL (32-36); Mean Corpuscular Volume 88.4 FL (87-102); Mean Platelet Volume 11.1 FL (9.6-12.0); Monocytes # 1.4 10*3/uL (0.11-0.8); Monocytes % 19.6 % (1.7-12.7); Neutrophils % 59.7 % (38.7-73.9); Platelet Count 288 T/CUMM (130-400); Red Blood Count 3.19 MC/CUMM (3.8-5.5); Red Cell Distribution Width 18.6 % (9.3-17.3); White Blood Count 6.9 T/CUMM (4-12)
[2021-08-05 03:03] LABS: Albumin 1.3 G/DL (3.4-5.0); Calcium 6.4 MG/DL (8.5-10.1); Potassium 3.5 MMOL/L (3.5-5.1); Total Protein 3.6 G/DL (6.4-8.2)
[2021-08-05 03:06] LABS: Bilirubin,Total 12.3 MG/DL (0.20-1.00)
[2021-08-05 03:21] LABS: Eosinophils 3 % (0-10); Lymphocytes 20 % (20-55); Platelet Estimate Adequate; Total Cells Counted 100
[2021-08-05 03:22] LABS: Hypochromia Slight
[2021-08-05] MEDS: MIDODRINE 5 MG TABLET PO SCH ×3 (06:12→17:18)
[2021-08-05] MEDS: fentaNYL 25 MCG/HR PATCH TRANSDERM SCH (06:12)
[2021-08-05] MEDS: CALCIUM CARBONATE CHEW 500 MG TABLET PO SCH ×3 (08:10→17:18)
[2021-08-05] MEDS: FAMOTIDINE 20 MG TABLET PO SCH (08:10)
[2021-08-05] MEDS: ASPIRIN CHEW 81 MG TABLET PO SCH (08:10)
[2021-08-05] MEDS: LENALIDOMIDE 5 MG PO SCH (13:04)
[2021-08-06] MEDS: PIPERACILLIN/TAZOBACTAM 3,375 MG in SODIUM CHLORIDE 0.9% 100 ML IV SCH ×2 (02:18→13:35)
[2021-08-06 04:10] LABS: Basophils # 0.1 10*3/uL (0.0-0.2); Basophils % 1.1 % (0.0-0.8); Eosinophils # 0.2 10*3/uL (0.0-0.87); Eosinophils % 2.9 % (0.00-10.9); Hematocrit 29.2 VOL% (35.7-47.0); Hemoglobin 9.7 GM/DL (12.0-16.0); Immature Granulocytes % 0.4 %; Immature Granulocytes Absolute 0.03 #; Lymphocytes # 1.3 10*3/uL (1.4-4.0); Lymphocytes % 15.8 % (21.3-54.2); Mean Corpuscular HGB Conc 33.2 GM/DL (32-36); Mean Corpuscular Volume 89.3 FL (87-102); Mean Platelet Volume 10.9 FL (9.6-12.0); Monocytes # 1.2 10*3/uL (0.11-0.8); Monocytes % 15.3 % (1.7-12.7); Neutrophils % 64.5 % (38.7-73.9); Platelet Count 292 T/CUMM (130-400); Red Blood Count 3.27 MC/CUMM (3.8-5.5); Red Cell Distribution Width 18.5 % (9.3-17.3)
[2021-08-06] MEDS: ONDANSETRON 4 MG/2 ML VIAL IV PRN (04:11)
[2021-08-06 04:28] LABS: Albumin 1.5 G/DL (3.4-5.0); Calcium 6.3 MG/DL (8.5-10.1); Osmolality,Calculated 276.1 MOS/KG (273-304); Potassium 3.5 MMOL/L (3.5-5.1)
[2021-08-06 04:31] LABS: Bilirubin,Total 13.5 MG/DL (0.20-1.00)
[2021-08-06] MEDS: MIDODRINE 5 MG TABLET PO SCH ×3 (05:33→18:54)
[2021-08-06] MEDS: PROMETHAZINE 25 MG TABLET PO PRN (07:06)
[2021-08-06] MEDS: CALCIUM CARBONATE CHEW 500 MG TABLET PO SCH ×3 (07:27→21:26)
[2021-08-06] MEDS: ASPIRIN CHEW 81 MG TABLET PO SCH (09:08)
[2021-08-06] MEDS: FAMOTIDINE 20 MG TABLET PO SCH (09:09)
[2021-08-06] MEDS: LENALIDOMIDE 5 MG PO SCH (09:09)
[2021-08-06] MEDS: ALBUMIN 25% 25 GM/100 ML VIAL IV SCH ×2 (12:32→21:42)
[2021-08-06] MEDS: TEMAZEPAM 15 MG CAPSULE PO PRN (22:39)
[2021-08-07] MEDS: PIPERACILLIN/TAZOBACTAM 3,375 MG in SODIUM CHLORIDE 0.9% 100 ML IV SCH (02:36)
[2021-08-07 05:25] LABS: Basophils # 0.1 10*3/uL (0.0-0.2); Basophils % 1.3 % (0.0-0.8); Eosinophils # 0.3 10*3/uL (0.0-0.87); Eosinophils % 3.8 % (0.00-10.9); Hematocrit 25.9 VOL% (35.7-47.0); Hemoglobin 8.6 GM/DL (12.0-16.0); Immature Granulocytes % 0.6 %; Immature Granulocytes Absolute 0.05 #; Lymphocytes # 1.4 10*3/uL (1.4-4.0); Lymphocytes % 17.4 % (21.3-54.2); Mean Corpuscular HGB Conc 33.2 GM/DL (32-36); Mean Corpuscular Volume 88.7 FL (87-102); Mean Platelet Volume 11.1 FL (9.6-12.0); Monocytes # 1.3 10*3/uL (0.11-0.8); Monocytes % 16.2 % (1.7-12.7); Neutrophils % 60.7 % (38.7-73.9); Platelet Count 255 T/CUMM (130-400); Red Blood Count 2.92 MC/CUMM (3.8-5.5); Red Cell Distribution Width 18.3 % (9.3-17.3); White Blood Count 7.9 T/CUMM (4-12)
[2021-08-07 05:40] LABS: Albumin 1.9 G/DL (3.4-5.0); Calcium 6.8 MG/DL (8.5-10.1); Osmolality,Calculated 277.5 MOS/KG (273-304); Potassium 3.3 MMOL/L (3.5-5.1)
[2021-08-07 05:44] LABS: Bilirubin,Total 12.5 MG/DL (0.20-1.00)
[2021-08-07 06:01] LABS: Eosinophils 7 % (0-10); Lymphocytes 10 % (20-55); Total Cells Counted 100
[2021-08-07 06:02] LABS: Microcytosis 1+; Target Cells Few
[2021-08-07 06:03] LABS: Platelet Estimate Normal
[2021-08-07] MEDS: ALBUMIN 25% 25 GM/100 ML VIAL IV SCH (06:09)
[2021-08-07] MEDS: MIDODRINE 5 MG TABLET PO SCH ×3 (06:09→17:35)
[2021-08-07] MEDS: CALCIUM CARBONATE CHEW 500 MG TABLET PO SCH ×3 (07:51→17:35)
[2021-08-07] MEDS: NOREPINEPHRINE 8 MG in SODIUM CHLORIDE 0.9% 242 ML IV PRN (09:21)
[2021-08-07] MEDS: ASPIRIN CHEW 81 MG TABLET PO SCH (09:24)
[2021-08-07] MEDS: LENALIDOMIDE 5 MG PO SCH ×2 (09:25→09:29)
[2021-08-07] MEDS: FAMOTIDINE 20 MG TABLET PO SCH (09:28)
[2021-08-07] MEDS ORDERED: POTASSIUM CHLORIDE 20 MEQ TABLET PO ONE (10:55)
[2021-08-07] MEDS ORDERED: LEVOFLOXACIN 750 MG TABLET PO ONE (13:51)
[2021-08-07] MEDS: TEMAZEPAM 15 MG CAPSULE PO PRN (22:05)
[2021-08-08 04:13] LABS: Basophils # 0.1 10*3/uL (0.0-0.2); Basophils % 1.4 % (0.0-0.8); Eosinophils # 0.3 10*3/uL (0.0-0.87); Eosinophils % 2.9 % (0.00-10.9); Hematocrit 27.1 VOL% (35.7-47.0); Hemoglobin 9.1 GM/DL (12.0-16.0); Immature Granulocytes % 1.1 %; Lymphocytes # 1.4 10*3/uL (1.4-4.0); Lymphocytes % 15.3 % (21.3-54.2); Mean Corpuscular HGB Conc 33.6 GM/DL (32-36); Mean Corpuscular Volume 89.4 FL (87-102); Mean Platelet Volume 10.7 FL (9.6-12.0); Monocytes # 1.5 10*3/uL (0.11-0.8); Monocytes % 16.3 % (1.7-12.7); Platelet Count 265 T/CUMM (130-400); Red Blood Count 3.03 MC/CUMM (3.8-5.5); Red Cell Distribution Width 18.4 % (9.3-17.3); White Blood Count 9.4 T/CUMM (4-12)
[2021-08-08 04:28] LABS: Albumin 1.8 G/DL (3.4-5.0); Bilirubin,Total 11.9 MG/DL (0.20-1.00); Calcium 6.6 MG/DL (8.5-10.1); Osmolality,Calculated 276.8 MOS/KG (273-304); Potassium 3.8 MMOL/L (3.5-5.1)
[2021-08-08 04:35] LABS: Eosinophils 4 % (0-10); Lymphocytes 10 % (20-55); Platelet Estimate Adequate; Total Cells Counted 100
[2021-08-08] MEDS: MIDODRINE 5 MG TABLET PO SCH ×3 (05:36→18:06)
[2021-08-08] MEDS: fentaNYL 25 MCG/HR PATCH TRANSDERM SCH (05:36)
[2021-08-08] MEDS ORDERED: LORazepam 2 MG/1 ML VIAL IV PRN (06:57)
[2021-08-08] MEDS ORDERED: HEPARIN 10,000 UNIT/10 ML VIAL IV SCH (08:00)
[2021-08-08] MEDS: CALCIUM CARBONATE CHEW 500 MG TABLET PO SCH ×3 (09:07→17:07)
[2021-08-08] MEDS: FAMOTIDINE 20 MG TABLET PO SCH (09:08)
[2021-08-08] MEDS: ASPIRIN CHEW 81 MG TABLET PO SCH (09:08)
[2021-08-08] MEDS: LENALIDOMIDE 5 MG PO SCH (10:22)
[2021-08-08] MEDS: DIAZEPAM 5 MG TABLET PO ONE ×2 (10:23→12:57)
[2021-08-08 14:10] VITALS: BP 79/58
[2021-08-08] MEDS: TEMAZEPAM 15 MG CAPSULE PO PRN (20:42)
[2021-08-08] MEDS ORDERED: LEVOFLOXACIN 500 MG TABLET PO SCH (21:00)
[2021-08-09 03:31] LABS: Basophils # 0.1 10*3/uL (0.0-0.2); Basophils % 1.1 % (0.0-0.8); Eosinophils # 0.2 10*3/uL (0.0-0.87); Eosinophils % 1.6 % (0.00-10.9); Hemoglobin 9.6 GM/DL (12.0-16.0); Immature Granulocytes % 0.7 %; Immature Granulocytes Absolute 0.07 #; Lymphocytes # 1.4 10*3/uL (1.4-4.0); Lymphocytes % 14.3 % (21.3-54.2); Mean Corpuscular HGB Conc 33.1 GM/DL (32-36); Mean Corpuscular Volume 90.3 FL (87-102); Mean Platelet Volume 10.9 FL (9.6-12.0); Monocytes # 1.3 10*3/uL (0.11-0.8); Monocytes % 14.1 % (1.7-12.7); Neutrophils % 68.2 % (38.7-73.9); Platelet Count 300 T/CUMM (130-400); Red Blood Count 3.21 MC/CUMM (3.8-5.5); White Blood Count 9.5 T/CUMM (4-12)
[2021-08-09 04:09] LABS: Albumin 1.7 G/DL (3.4-5.0); Bilirubin,Total 10.6 MG/DL (0.20-1.00); Calcium 7.2 MG/DL (8.5-10.1); Potassium 3.6 MMOL/L (3.5-5.1)
[2021-08-09] MEDS: NOREPINEPHRINE 8 MG in SODIUM CHLORIDE 0.9% 242 ML IV PRN (05:11)
[2021-08-09] MEDS: MIDODRINE 5 MG TABLET PO SCH ×3 (06:16→17:26)
[2021-08-09] MEDS: FAMOTIDINE 20 MG TABLET PO SCH (08:44)
[2021-08-09] MEDS: CALCIUM CARBONATE CHEW 500 MG TABLET PO SCH ×3 (08:44→17:26)
[2021-08-09] MEDS: ASPIRIN CHEW 81 MG TABLET PO SCH (08:44)
[2021-08-09] MEDS: LENALIDOMIDE 5 MG PO SCH (08:45)
[2021-08-09] MEDS: methylPREDNISolone SOD SUC 40 MG/1 ML VIAL IV SCH ×2 (14:02→21:22)
[2021-08-09] MEDS: TEMAZEPAM 15 MG CAPSULE PO PRN (21:22)
[2021-08-10] MEDS: methylPREDNISolone SOD SUC 40 MG/1 ML VIAL IV SCH ×2 (04:50→13:44)
[2021-08-10 04:57] LABS: Basophils # 0.1 10*3/uL (0.0-0.2); Basophils % 0.5 % (0.0-0.8); Hematocrit 30.3 VOL% (35.7-47.0); Hemoglobin 10.1 GM/DL (12.0-16.0); Immature Granulocytes % 0.7 %; Immature Granulocytes Absolute 0.06 #; Lymphocytes # 0.9 10*3/uL (1.4-4.0); Lymphocytes % 9.7 % (21.3-54.2); Mean Corpuscular HGB Conc 33.3 GM/DL (32-36); Mean Corpuscular Volume 89.1 FL (87-102); Mean Platelet Volume 11.7 FL (9.6-12.0); Monocytes # 0.5 10*3/uL (0.11-0.8); Monocytes % 5.5 % (1.7-12.7); Neutrophils % 83.6 % (38.7-73.9); Platelet Count 339 T/CUMM (130-400); Red Cell Distribution Width 18.1 % (9.3-17.3); White Blood Count 9.1 T/CUMM (4-12)
[2021-08-10 05:16] LABS: Albumin 1.8 G/DL (3.4-5.0); Bilirubin,Total 11.1 MG/DL (0.20-1.00); Calcium 7.3 MG/DL (8.5-10.1); Potassium 4.1 MMOL/L (3.5-5.1); Total Protein 4.3 G/DL (6.4-8.2)
[2021-08-10] MEDS: MIDODRINE 5 MG TABLET PO SCH ×2 (05:52→13:47)
[2021-08-10] MEDS: FAMOTIDINE 20 MG TABLET PO SCH (09:02)
[2021-08-10] MEDS: LENALIDOMIDE 5 MG PO SCH (09:03)
[2021-08-10] MEDS: ASPIRIN CHEW 81 MG TABLET PO SCH (09:03)
[2021-08-10] MEDS: CALCIUM CARBONATE CHEW 500 MG TABLET PO SCH ×2 (09:03→13:47)
== END 2021-08-10 13:49 | disposition home or self-care (01) | DRG 193 ==
LOC: N.ED 20:19 → SUATTDRO 08-02 00:29 → N.EDINP 08-02 00:29 → N.ICU 08-02 01:31
PROVIDERS: ADMIT Internal Medicine; ATTEND Internal Medicine